=== PATIENT | male | born 1940 | race Caucasian/White ===

== ENCOUNTER → 2017-08-05 | Outpatient (CLI) | payer MEDICARE ==
[2017-08-05 11:16] LABS: Basophils % (A) 1 %; CH 32.1; CHCM 31.8; Eosinophils # (A) 0.1 k/uL (0-0.7); Eosinophils % (A) 1 %; HGB 13.9 gm/dL (13.0-17.5); Luc % (Auto) 2; Lymphocytes # (A) 1.5 k/uL (1.0-4.8); Lymphocytes % (A) 24 %; MCH 32.9 pg (25.0-35.0); MCHC 32.5 g/dL (31.0-37.0); MCV 101.3 fL (80.0-100.0); Macrocytosis Slight; Mean Platelet Volume 6.7; Monocytes # (A) 0.5 k/uL (0-1.0); Monocytes % (A) 8 %; Neutrophils # (A) 4.1 k/uL (1.3-7.7); Neutrophils % (A) 65 %; RBC 4.24 m/uL (4.30-5.90); RDW 13.6 % (11.5-15.5); WBC 6.3 k/uL (3.8-10.6); WBC (Perox) 6.77
[2017-08-05 11:27] LABS: ALT 41 U/L (21-72); AST 24 U/L (17-59); Alkaline Phosphatase 54 U/L (38-126); Anion Gap 7 mmol/L; Blood Urea Nitrogen 18 mg/dL (9-20); Calcium 9.5 mg/dL (8.4-10.2); Carbon Dioxide 28 mmol/L (22-30); Chloride 107 mmol/L (98-107); Cholesterol 142 mg/dL (<200); Glucose 107 mg/dL (74-99); HDL Cholesterol 67 mg/dL (40-60); Non-African American GFR(MDRD) >60 (>60 ml/min/1.73 sqM); Potassium 4.4 mmol/L (3.5-5.1); Sodium 142 mmol/L (137-145); Total Bilirubin 0.6 mg/dL (0.2-1.3); Total Protein 6.2 g/dL (6.3-8.2)
== END | disposition home or self-care (01) ==
LOC: LABWHC1 10:10
PROVIDERS: ATTEND Internal Medicine
DX: Z00.00 Encounter for general adult medical examination without abnormal findings (principal); E78.5 Hyperlipidemia, unspecified; I10 Essential (primary) hypertension; Z12.5 Encounter for screening for malignant neoplasm of prostate
CPT/HCPCS: 84439; 80061; 80053; 84443; 85025; 36415; G0103

== ENCOUNTER → 2018-02-26 | Outpatient (CLI) | payer MEDICARE ==
[2018-02-26 12:45] LABS: ALT 36 U/L (21-72); AST 25 U/L (17-59); Albumin 4.2 g/dL (3.5-5.0); Alkaline Phosphatase 57 U/L (38-126); Anion Gap 10 mmol/L; Calcium 9.9 mg/dL (8.4-10.2); Carbon Dioxide 30 mmol/L (22-30); Chloride 103 mmol/L (98-107); Glucose 90 mg/dL (74-99); Magnesium 2.4 mg/dL (1.6-2.3); Potassium 4.5 mmol/L (3.5-5.1); Sodium 143 mmol/L (137-145); Total Bilirubin 0.7 mg/dL (0.2-1.3); Total Protein 6.4 g/dL (6.3-8.2)
[2018-02-26 14:00] LABS: Blood Urea Nitrogen 25 mg/dL (9-20)
[2018-02-26 18:43] LABS: PSA Annual Screen 2.26 ng/mL (0.00-4.00)
[2018-02-26 19:35] LABS: Vitamin D 25 Hydroxy 43.6 ng/mL (30.0-100.0)
== END | disposition home or self-care (01) ==
LOC: LABWHC1 11:40
PROVIDERS: ATTEND Internal Medicine
DX: G14 Postpolio syndrome (principal); R53.1 Weakness; R53.83 Other fatigue; R97.20 Elevated prostate specific antigen [PSA]
CPT/HCPCS: 84439; 80053; 85652; 82607; 83735; 84443; 82306; 84403; 36415; G0103

== ENCOUNTER 2018-06-21 08:21 | Inpatient (IN) | payer MEDICARE ==
--- NOTE | 2018-06-21 08:57 | ED ---
General Adult HPI - General Chief complaint: Neuro Symptoms/Deficit Stated complaint: Altered mental status Time Seen by Provider: 06/21/18 08:28 Source: patient, family, RN notes reviewed Mode of arrival: wheelchair Limitations: altered mental status - History of Present Illness Initial comments: Patient is a pleasant 77-year-old male presenting to the emergency department with change in mental status. Patient has been having some symptoms this past week however worse today. Patient is having some hallucinations and confusion. This morning the patient did not know who he was. Patient also did not know who his was this morning and still is not certain that she is his . No history of similar symptoms previously. Patient does have known Parkinson' s. 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 No pain. No fevers. No headache. No new weakness. Patient does admit to feeling confused. Patient states he feels cloudy. - Related Data Home Medications Medication Instructions Recorded Confirmed Aspirin 325 mg PO DAILY 03/01/16 03/01/16 Bimatoprost [Lumigan .01% Ophth 1 drop BOTH EYES HS 03/01/16 03/01/16 Soln] Ezetimibe [Zetia] 10 mg PO DAILY 03/01/16 03/01/16 Fluticasone Nas[place] [Flonase 2 spr EA NOSTRIL DAILY 03/01/16 03/01/16 Nasal [place]] Metoprolol Tartrate [Lopressor] 50 mg PO DAILY 03/01/16 03/01/16 Montelukast [Singulair] 10 mg PO DAILY 03/01/16 03/01/16 Allergies Allergy/AdvReac Type Severity Reaction Status Date / Time No Known Allergies Allergy Verified 06/21/18 08:27 Review of Systems ROS Statement: Those systems with pertinent positive or pertinent negative responses have been documented in the HPI. ROS Other: All systems not noted in ROS Statement are negative. Constitutional: Denies: fever Eyes: Denies: eye pain ENT: Denies: ear pain Respiratory: Denies: cough Cardiovascular: Denies: chest pain Endocrine: Denies: fatigue Gastrointestinal: Denies: abdominal pain Genitourinary: Denies: dysuria Musculoskeletal: Denies: back pain Skin: Denies: rash Neurological: Reports: confusion. Denies: headache, weakness Past Medical History Past Medical History: CVA/TIA, Hyperlipidemia, Hypertension Additional Past Medical History / Comment(s): polio as a child, Parkinsons History of Any Multi-Drug Resistant Organisms: None Reported Past Surgical History: Orthopedic Surgery Additional Past Surgical History / Comment(s): as an pt states he had surgery to his right arm. Past Psychological History: No Psychological Hx Reported Smoking Status: Former smoker Past Alcohol Use History: Heavy Past Drug Use History: None Reported General Exam Limitations: no limitations General appearance: alert, in no apparent distress Head exam: Present: atraumatic, normocephalic Eye exam: Present: normal appearance, PERRL, EOMI. Absent: nystagmus ENT exam: Present: normal oropharynx Neck exam: Present: normal inspection. Absent: tenderness, meningismus Respiratory exam: Present: normal lung sounds bilaterally Cardiovascular Exam: Present: regular rate, normal rhythm GI/Abdominal exam: Present: soft. Absent: tenderness Extremities exam: Present: other (Right arm atrophy) Neurological exam: Present: alert, oriented X3 Expanded Neurological exam: Present: protecting the airway, other (Patient is unable to identify his ) Patient oriented to: Present: person, place, time Speech: Present: fluid speech Cranial nerves: EOM's Intact: Normal, Facial Sensation: Normal Sensory exam: Upper Extremity Light Touch: Normal, Lower Extremity Light Touch: Normal Motor strength exam: RUE: 3, LUE: 5, RLE: 5, LLE: 5 Eye Response: (4) open spontaneously Motor Response: (6) obeys commands Verbal Response: (5) oriented Psychiatric exam: Present: normal affect, normal mood Skin exam: Present: normal color Course Vital Signs 06/21/18 06/21/18 08:24 09:47 Temperature 97 F L Pulse Rate 62 65 Respiratory 18 18 Rate Blood Pressure 168/97 169/79 O2 Sat by Pulse 98 100 Oximetry EKG Findings - EKG Comments: EKG Findings:: Normal sinus rhythm 64. MT 144. QRS 92. QT 408. QTC 420. Normal axis. Normal QRS. No acute ST change. Medical Decision Making - Medical Decision Making Patient reevaluated and resting comfortably in bed. Patient unchanged. Patient and family are updated on results and plan. Case was discussed with Dr. Oquendo, covering for Dr. Bustillo who requests patient have medical admission for Dr. agee. Case was discussed with Dr. marino, who will admit. - Lab Data Result diagrams: 06/21/18 08:50 06/21/18 08:50 Lab Results 06/21/18 06/21/18 06/21/18 Range/Units 08:50 08:50 08:50 WBC 8.4 (3.8-10.6) k/uL RBC 4.30 (4.30-5.90) m/uL Hgb 13.7 (13.0-17.5) gm/dL Hct 41.8 (39.0-53.0) % MCV 97.1 (80.0-100.0) fL MCH 31.8 (25.0-35.0) pg MCHC 32.8 (31.0-37.0) g/dL RDW 13.6 (11.5-15.5) % Plt Count 227 (150-450) k/uL Neutrophils % 69 % Lymphocytes % 20 % Monocytes % 8 % Eosinophils % 2 % Basophils % 0 % Neutrophils # 5.8 (1.3-7.7) k/uL Lymphocytes # 1.7 (1.0-4.8) k/uL Monocytes # 0.7 (0-1.0) k/uL Eosinophils # 0.2 (0-0.7) k/uL Basophils # 0.0 (0-0.2) k/uL PT (9.0-12.0) sec INR (<1.2) APTT (22.0-30.0) sec Sodium 141 (137-145) mmol/L Potassium 3.9 (3.5-5.1) mmol/L Chloride 107 (98-107) mmol/L Carbon Dioxide 26 (22-30) mmol/L Anion Gap 8 mmol/L BUN 19 (9-20) mg/dL Creatinine 0.77 (0.66-1.25) mg/dL Est GFR (CKD-EPI)AfAm >90 (>60 ml/min/1.73 sqM) Est GFR (CKD-EPI)NonAf 87 (>60 ml/min/1.73 sqM) Glucose 106 H (74-99) mg/dL POC Glucose (mg/dL) (75-99) mg/dL POC Glu Supervisor [employer] ID Calcium 9.2 (8.4-10.2) mg/dL Total Bilirubin 0.7 (0.2-1.3) mg/dL AST 25 (17-59) U/L ALT 25 (21-72) U/L Alkaline Phosphatase 50 (38-126) U/L Total Creatine Kinase 90 (55-170) U/L CK-MB (CK-2) 1.4 (0.0-2.4) ng/mL CK-MB (CK-2) Rel Index 1.6 Troponin I <0.012 (0.000-0.034) ng/mL Total Protein 6.1 L (6.3-8.2) g/dL Albumin 3.7 (3.5-5.0) g/dL Urine Color Urine Appearance (Clear) Urine pH (5.0-8.0) Ur Specific [place] (1.001-1.035) Urine Protein (Negative) Urine Glucose (UA) (Negative) Urine Ketones (Negative) Urine Blood (Negative) Urine Nitrite (Negative) Urine Bilirubin (Negative) Urine Urobilinogen (<2.0) mg/dL Ur Leukocyte Esterase (Negative) 06/21/18 06/21/18 06/21/18 Range/Units 08:50 08:56 09:25 WBC (3.8-10.6) k/uL RBC (4.30-5.90) m/uL Hgb (13.0-17.5) gm/dL Hct (39.0-53.0) % MCV (80.0-100.0) fL MCH (25.0-35.0) pg MCHC (31.0-37.0) g/dL RDW (11.5-15.5) % Plt Count (150-450) k/uL Neutrophils % % Lymphocytes % % Monocytes % % Eosinophils % % Basophils % % Neutrophils # (1.3-7.7) k/uL Lymphocytes # (1.0-4.8) k/uL Monocytes # (0-1.0) k/uL Eosinophils # (0-0.7) k/uL Basophils # (0-0.2) k/uL PT 10.3 (9.0-12.0) sec INR 1.1 (<1.2) APTT 22.9 (22.0-30.0) sec Sodium (137-145) mmol/L Potassium (3.5-5.1) mmol/L Chloride (98-107) mmol/L Carbon Dioxide (22-30) mmol/L Anion Gap mmol/L BUN (9-20) mg/dL Creatinine (0.66-1.25) mg/dL Est GFR (CKD-EPI)AfAm (>60 ml/min/1.73 sqM) Est GFR (CKD-EPI)NonAf (>60 ml/min/1.73 sqM) Glucose (74-99) mg/dL POC Glucose (mg/dL) 111 H (75-99) mg/dL POC Glu [employer]visor [employer] ID Mary Barrett Calcium (8.4-10.2) mg/dL Total Bilirubin (0.2-1.3) mg/dL AST (17-59) U/L ALT (21-72) U/L Alkaline Phosphatase (38-126) U/L Total Creatine Kinase (55-170) U/L CK-MB (CK-2) (0.0-2.4) ng/mL CK-MB (CK-2) Rel Index Troponin I (0.000-0.034) ng/mL Total Protein (6.3-8.2) g/dL Albumin (3.5-5.0) g/dL Urine Color Yellow Urine Appearance Clear (Clear) Urine pH 6.0 (5.0-8.0) Ur Specific [place] 1.013 (1.001-1.035) Urine Protein Negative (Negative) Urine Glucose (UA) Negative (Negative) Urine Ketones Negative (Negative) Urine Blood Negative (Negative) Urine Nitrite Negative (Negative) Urine Bilirubin Negative (Negative) Urine Urobilinogen <2.0 (<2.0) mg/dL Ur Leukocyte Esterase Negative (Negative) - Radiology Data Radiology results: report reviewed (Computed tomography scan of the brain reveals no acute intercranial abnormality. There is some degenerative changes.) , image reviewed (Chest x-ray shows no acute process) Disposition Clinical Impression: Altered mental status Disposition: ADMITTED IP TO THIS HOSP Is patient prescribed a controlled substance at d/c from ED?: No Referrals: Elroy Bustillo MD [Primary Care Provider] - 1-2 days Decision Time: 10:07
[2018-06-21 09:00] LABS: Glucose,Whole Blood 111 mg/dL (75-99)
[2018-06-21 09:01] LABS: Basophils % (A) 0 %; Eosinophils # (A) 0.2 k/uL (0-0.7); Eosinophils % (A) 2 %; HCT 41.8 % (39.0-53.0); HGB 13.7 gm/dL (13.0-17.5); Lymphocytes # (A) 1.7 k/uL (1.0-4.8); Lymphocytes % (A) 20 %; MCH 31.8 pg (25.0-35.0); MCHC 32.8 g/dL (31.0-37.0); MCV 97.1 fL (80.0-100.0); Mean Platelet Volume 6.6; Monocytes # (A) 0.7 k/uL (0-1.0); Monocytes % (A) 8 %; Neutrophils # (A) 5.8 k/uL (1.3-7.7); Neutrophils % (A) 69 %; Platelet Count 227 k/uL (150-450); RDW 13.6 % (11.5-15.5); WBC 8.4 k/uL (3.8-10.6)
[2018-06-21 09:11] LABS: ALT 25 U/L (21-72); AST 25 U/L (17-59); Albumin 3.7 g/dL (3.5-5.0); Alkaline Phosphatase 50 U/L (38-126); Anion Gap 8 mmol/L; Blood Urea Nitrogen 19 mg/dL (9-20); Calcium 9.2 mg/dL (8.4-10.2); Carbon Dioxide 26 mmol/L (22-30); Chloride 107 mmol/L (98-107); Glucose 106 mg/dL (74-99); Potassium 3.9 mmol/L (3.5-5.1); Sodium 141 mmol/L (137-145); Total Bilirubin 0.7 mg/dL (0.2-1.3); Total Protein 6.1 g/dL (6.3-8.2)
[2018-06-21 09:19] LABS: INR 1.1 (<1.2); Partial Thromboplastin Time 22.9 sec (22.0-30.0); Prothrombin Time 10.3 sec (9.0-12.0)
[2018-06-21 09:21] LABS: Creatine Kinase 90 U/L (55-170)
--- NOTE | 2018-06-21 09:21 | CT ---
EXAMINATION TYPE: CT brain wo con DATE OF EXAM: 06/21/2018 COMPARISON: Previous study dated 12/29/2015. HISTORY: confusion CT DLP: 1057.4 mGycm Automated exposure control for dose reduction was used. FINDINGS: There are generalized changes of sulcal prominence and ventriculomegaly, compatible with atrophic greg nge. There is diffuse periventricular white matter lucency, compatible small vessel ischemic change. There is no acute focal lesion, mass effect or midline shift identified. I do not see evidence of int racranial blood. Visualized portions of the paranasal sinuses and mastoids are clear. IMPRESSION: 1. NO ACUTE INTRACRANIAL ABNORMALITY. 2. DEGENERATIVE CHANGE.
--- NOTE | 2018-06-21 09:31 | XR ---
EXAMINATION TYPE: XR chest 2V DATE OF EXAM: 06/21/2018 HISTORY: altered mental status. REFERENCE: Previous study dated 03/01/2016. FINDINGS: There is chronic apparent elevation of the right hemidiaphragm. The heart is mildly enlarged. The lungs are clear. Pleural spaces are clear. IMPRESSION: NO ACUTE INTRATHORACIC ABNORMALITY.
[2018-06-21 09:34] LABS: Creatine Kinase MB 1.4 ng/mL (0.0-2.4); Troponin I <0.012 ng/mL (0.000-0.034)
[2018-06-21 09:42] LABS: Appearance,Urine Clear (Clear); Bilirubin,Urine Negative (Negative); Blood,Urine Negative (Negative); Color,Urine Yellow; Glucose,Urine (UA) Negative (Negative); Ketones,Urine Negative (Negative); Leukocyte Esterase,Urine Negative (Negative); Nitrite,Urine Negative (Negative); Protein,Urine Negative (Negative); Specific Gravity,Urine 1.013 (1.001-1.035); Urobilinogen,Urine <2.0 mg/dL (<2.0)
[2018-06-21] MEDS ORDERED: NALOXONE 0.4 MG/ML 1 ML VIAL IV PRN (10:08)
[2018-06-21] MEDS ORDERED: SODIUM CHLORIDE 0.9% 1,000 ML IV SCH (10:15)
--- NOTE | 2018-06-21 10:57 | US ---
EXAMINATION TYPE: US carotid duplex BILAT DATE OF EXAM: 06/21/2018 COMPARISON: Previous study dated 01/04/2016. CLINICAL HISTORY: ams. AMS EXAM MEASUREMENTS: RIGHT: Peak Systolic Velocity (PSV) cm/sec ----- Right CCA: 80.1 ----- Right ICA: 58.9 ----- Right ECA: 102.1 ICA/CCA ratio: 0.7 RIGHT: End Diastole cm/sec ----- Right CCA: 14.2 ----- Right ICA: 12.7 ----- Right ECA: 8.9 LEFT: Peak Systolic Velocity (PSV) cm/sec ----- Left CCA: 85.6 ----- Left ICA: 80.1 ----- Left ECA: 75.7 ICA/CCA ratio: 0.9 LEFT: End Diastole cm/sec ----- Left CCA: 13.1 ----- Left ICA: 25.2 ----- Left ECA: 6.5 VERTEBRALS (direction of flow): Right Vertebral: Antegrade Left Vertebral: Antegrade Rhythm: Normal No significant stenosis seen IMPRESSION: I DO NOT SEE EVIDENCE OF A HEMODYNAMICALLY SIGNIFICANT STENOSIS IN EITHER CAROTID SYSTEM. Criteria for Assigning % of Stenosis / Diameter reduction (Estimation based on the indirect measurements of the internal carotid artery velocities (ICA PSV). 1. Normal (no stenosis)=ICA PSV < 125 cm/s: ratio < 2.0: ICA EDV<40 cm/s. 2. Less than 50% stenosis=ICA PSV < 125 cm/s: ratio < 2.0: ICA EDV<40 cm/s. 3. 50 to 69% stenosis=ICA PSV of 125 to 230 cm/s: ration 2.0 ? 4.0: ICA EDV 40-100 cm/s. 4. Greater than 70% stenosis to near occlusion= ICA PSV > 230 cm/s: ratio > 4.0: ICA EDV > 100 cm/s. 5. Near occlusion= ICA PSV velocities may be low or undetectable: variable ratio and ICA EDV. 6. Total occlusion=unable to detect flow.
[2018-06-21 11:20] VITALS: BMI 23.8
[2018-06-21] MEDS ORDERED: ENOXAPARIN 40 MG/0.4 ML SYRINGE SQ SCH (12:45)
[2018-06-21] MEDS ORDERED: CLOPIDOGREL 75 MG TAB PO SCH (12:45)
[2018-06-21] MEDS ORDERED: METOPROLOL SUCCINATE (ER) 50 MG TAB.ER.24H PO SCH (12:45)
[2018-06-21] MEDS ORDERED: EZETIMIBE 10 MG TAB PO SCH (12:45)
[2018-06-21] MEDS ORDERED: amLODIPine 5 MG TAB PO SCH (12:45)
[2018-06-21] MEDS ORDERED: LOSARTAN 50 MG TAB PO SCH (12:45)
[2018-06-21] MEDS: CARBIDOPA-LEVODOPA 25-100 MG 1 EACH TAB PO SCH ×3 (13:00→17:09)
[2018-06-21 15:20] VITALS: BP 147/70; PULSE 56; RESP 17; TEMP 97.8
--- NOTE | 2018-06-21 17:59 | HP ---
HISTORY AND PHYSICAL DATE OF SERVICE: 06/21/2018. PRESENTING COMPLAINT: Acute forgetfulness. 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 Bustillo. Chronic stable medical conditions include hypertension, hyperlipidemia, and polio affecting the right arm. The patient, on May 08, was diagnosed with Parkinson disease, started on Sinemet 25/100, at [facility], 3 times a day. Most of the history is derived from the , who is very active in his care. The patient, over a period of time, has had speech becoming slow and handwriting was becoming more spidery. The patient was having a shuffling gait and not much movement of his arms. His expression was becoming more flat. The patient had formerly seen Dr. Armstrong locally in [facility], the neurologist. The patient took the Sinemet for about a month, about 4 days ago the patient noticed 4 small people inside his house and he was hallucinating and he went down to his neighbors. This morning he was not able to recognize his . The , in the last 3 days, had cut back on the dose of Sinemet. He was taking it 2 tablets 3 times a day, now down to 1 tablet 3 times a day, with fear of the tablets causing hallucinations. The patient did not have any new weakness. Later the patient was able to recognize his . The patient did have a TIA in the past, for which he was taking Plavix. When I interviewed the patient he had come back to his baseline. The patient has an appointment, after waiting a long time, at [facility] tomorrow morning at 9 o'clock. REVIEW OF SYSTEMS: CONSTITUTIONAL: None. HEENT: None. RESPIRATORY: None. CARDIOVASCULAR: None. GASTROINTESTINAL: None. GENITOURINARY: None. MUSCULOSKELETAL: None. DERMATOLOGIC: None. HEMATOLOGIC: None. LYMPHATICS: None. PSYCHIATRY: As above. NEUROLOGIC: As above. PAST MEDICAL HISTORY: TIA, hypertension, hyperlipidemia, polio, Parkinson disease. PAST SURGICAL HISTORY: The patient had surgery to the right upper extremity. SOCIAL HISTORY: The patient smoked in the younger years. Drinks alcohol occasionally. . 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 FAMILY HISTORY: Pancreatic cancer. HOME MEDICATIONS: 1. Norvasc 5 mg p.o. daily. 2. Singulair 10 mg p.o. at bedtime. 3. Toprol-XL 50 mg p.o. daily. 4. Losartan 50 mg b.i.d. 5. Zetia 10 mg p.o. daily. 6. Plavix 75 mg p.o. daily. 7. Sinemet 25/100 one tablet p.o. t.i.d. 8. Lumigan 0.01% 1 drop to both eyes at bedtime. ALLERGIES: None. PHYSICAL EXAMINATION: Temperature 97.8, pulse 56, respiration 17, blood pressure 147/70, pulse ox 97 percent on room air. GENERAL: Average built, sitting up, comfortable. EYES: Pupil equal. Conjunctivae normal. HEENT: External nose and ears normal. Oral cavity normal. NECK: JVD not raised. Mass not palpable. RESPIRATORY: Effort normal. Lungs fair entry. CARDIOVASCULAR: 1st and 2nd sounds. No edema. ABDOMEN: Soft, nontender. Liver and spleen not palpable. LYMPHATICS: No lymph nodes palpable in the neck or axillae. PSYCHIATRY: Alert and oriented x3. Mood and affect normal. NEUROLOGIC: Speech is a bit monotone. The patient has bradykinesia. No obvious tremor. Minimal rigidity. The patient has got a contracted right upper extremity with all muscles contracted. Also . The patient may subtle weakness on the left side of the face compared to right. is not sure if this is new or old. ASSESSMENT: 1. Acute episode of increasing forgetfulness in a patient who has been having also hallucinations. The patient may be having dementia associated with Parkinson disease flaring up. At the same time, hallucinations can be a side effect of the Sinemet diagnosed in 2% to 3%. 2. 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 3. Essential hypertension. 4. Hyperlipidemia. 5. Chronic polio affecting the right arm. PLAN: Home medications are resumed. The patient will be kept on current dose of Sinemet. The patient is continued on Plavix. Discussed with the about keeping the patient's current dose of Sinemet. We will discuss with Dr. Armstrong, to see if patient can be discharged later tonight to follow up at [facility] in the morning. Did talk to the , that ideally we would keep the patient at least for 24 hours, but keeping the appointment tomorrow is important. The and the patient understand the same. MMODL / IJN: [id number] /
[2018-06-21] MEDS ORDERED: MONTELUKAST 10 MG TAB PO SCH (21:00)
[2018-06-21] MEDS ORDERED: LATANOPROST 0.005% OPHTH DROPS 2.5 ML BTL BOTH EYES SCH (21:00)
--- NOTE | 2018-06-21 22:26 | DS ---
DISCHARGE SUMMARY DATE OF ADMISSION: 06/21/2018 DATE OF DISCHARGE: June 21, 2018. FINAL DIAGNOSES: 1. Acute episode of increased forgetful in the patient possibly secondary to dementia from underlying Parkinson disease associated with possibly Lewy body dementia or could be a side effect. 2. Hallucinations could be a side effect of Sinemet presented in 2-3 percent of cases. 3. Parkinson disease associated with the Lewy body dementia possibly. 4. Essential hypertension. 5. Hyperlipidemia. 6. Chronic polio affecting the right arm. HOSPITAL COURSE: Please see my H and P for more details. Recently diagnosed with Parkinson disease at the [facility]. Started on Sinemet. The patient has been having some hallucinations. Today became forgetful. Did not recognize his . The patient is already on Plavix for previous TIA. I had a long talk with the patient and his and they have an important appointment tomorrow at [facility]. Pros and cons were discussed with the patient and . Also spoke to Dr. Armstrong. It was felt best for him to go home tonight and follow up at [facility] and if something untoward were to happen, he is to come back to the hospital. On examination, patient able to carry out a conversation and the patient has got bradykinesia, slow speech. Did talk to the about maintaining his current dose of Sinemet. CONSULTATION: Dr. Armstrong from Neurology. DISCHARGE MEDICATIONS: 1. Lumigan 0.01% 1 drop to both eyes q.h.s. 2. Zetia 10 mg p.o. daily. 3. Singulair 10 mg at bedtime. 4. Sinemet 25/100 one tablet p.o. t.i.d. 5. Plavix 75 mg p.o. daily. 6. Losartan 50 mg b.i.d. 7. Toprol-XL 50 mg p.o. daily. 8. Norvasc 5 mg p.o. q.h.s. FOLLOW UP: Follow up at [facility] neurologist tomorrow morning at [address] Elroy Bustillo in one week. Copy to Dr. Bustillo. MMODL / [place]: [id number] /
== END 2018-06-21 17:48 | disposition home or self-care (01) | DRG 57 ==
LOC: EC 08:21 → 6SEL 10:08
PROVIDERS: ADMIT Hospitalist; ATTEND Hospitalist
DX: G31.83 Neurocognitive disorder with Lewy bodies (principal); R44.2 Other hallucinations; B91 Sequelae of poliomyelitis; F02.80 Dementia in other diseases classified elsewhere, unspecified severity, without behavioral disturbance, psychotic disturbance, mood disturbance, and anxiety; R53.1 Weakness; T42.8X5A Adverse effect of antiparkinsonism drugs and other central muscle-tone depressants, initial encounter; I10 Essential (primary) hypertension; E78.5 Hyperlipidemia, unspecified; Z79.02 Long term (current) use of antithrombotics/antiplatelets; Z79.899 Other long term (current) drug therapy; Z79.82 Long term (current) use of aspirin; Z86.73 Personal history of transient ischemic attack (TIA), and cerebral infarction without residual deficits; Z87.891 Personal history of nicotine dependence; Z80.0 Family history of malignant neoplasm of digestive organs
CPT/HCPCS: 36415; 70450; 71046; 80053; 81003; 82550; 82553; 84484; 85025; 85610; 85730; 93880; 99285

== ENCOUNTER → 2019-07-12 | Outpatient (CLI) | payer MEDICARE ==
[2019-07-12 09:46] LABS: Basophils % (A) 1 %; Eosinophils # (A) 0.4 k/uL (0-0.7); Eosinophils % (A) 5 %; HCT 39.5 % (39.0-53.0); HGB 12.8 gm/dL (13.0-17.5); Lymphocytes # (A) 1.9 k/uL (1.0-4.8); Lymphocytes % (A) 27 %; MCH 31.4 pg (25.0-35.0); MCHC 32.3 g/dL (31.0-37.0); MCV 97.1 fL (80.0-100.0); Mean Platelet Volume 6.4; Monocytes # (A) 0.5 k/uL (0-1.0); Monocytes % (A) 8 %; Neutrophils % (A) 57 %; Platelet Count 224 k/uL (150-450); RBC 4.07 m/uL (4.30-5.90); RDW 13.6 % (11.5-15.5)
[2019-07-12 16:17] LABS: ALT 23 U/L (10-49); AST 24 U/L (14-35); African American GFR (CKD) 93.8 (60.0-200.0); Albumin/Globulin Ratio 2.22 (1.60-3.17); Alkaline Phosphatase 76 U/L (41-126); BUN/Creat Ratio 25.56 Ratio (12.00-20.00); Calcium 9.3 mg/dL (8.7-10.3); Carbon Dioxide 28.4 mmol/L (21.6-31.8); Chloride 108 mmol/L (96-109); Chol/HDL Ratio 2.15; Cholesterol 146 mg/dL (0-200); Globulin 1.8 g/dL (1.6-3.3); Glucose 101 mg/dL (70-110); Potassium 4.1 mmol/L (3.5-5.5); Sodium 145 mmol/L (135-145); Total Bilirubin 0.4 mg/dL (0.2-1.2); Total Protein 5.8 g/dL (6.2-8.2); Triglycerides <50.0 mg/dL (0.0-149.0); VLDL Calculation 9.98 mg/dL (5.00-40.00)
== END | disposition home or self-care (01) ==
LOC: LABWHC1 08:46
PROVIDERS: ATTEND Internal Medicine
DX: Z00.00 Encounter for general adult medical examination without abnormal findings (principal); Z12.5 Encounter for screening for malignant neoplasm of prostate; E78.00 Pure hypercholesterolemia, unspecified; I10 Essential (primary) hypertension; R49.8 Other voice and resonance disorders; G20 Parkinson's disease
CPT/HCPCS: 84439; 80061; 80053; 82607; 84443; 85025; 36415; G0103

== ENCOUNTER 2020-10-14 11:34 | Emergency (ER) | payer MEDICARE ==
[2020-10-14] MEDS ORDERED: DIPH,PERTUS(ACELL)TETVAC-LF 0.5 ML VIAL IM ONE (12:00)
[2020-10-14 12:05] LABS: Glucose,Whole Blood 87 mg/dL (75-99)
--- NOTE | 2020-10-14 12:09 | ED ---
Fall HPI - General Chief Complaint: Fall Stated Complaint: Fall Time Seen by Provider: 10/14/20 11:51 Source: patient, family, RN notes reviewed, old records reviewed Mode of arrival: wheelchair - History of Present Illness Initial Comments: This is an 80-year-old male with a history of CVA hypertension post polio syndrome who apparently fell out of bed this morning. Is a question whether he was rendered unconscious for a short period time or not. His found him he was awake and alert he had a contusion abrasion to the top of the scalp also to his left forearm and some bruising to the right forearm. He was seen at [facility] and sent here for further evaluation. Is unknown exactly when his last tetanus shot was. No other complaints no other modifying factors at this time he is on Plavix. MD Complaint: fall - Related Data Home Medications Medication Instructions Recorded Confirmed Bimatoprost [Lumigan .01% Ophth 1 drop BOTH EYES HS 03/01/16 10/14/20 Soln] Ezetimibe [Zetia] 10 mg PO DAILY 03/01/16 10/14/20 Montelukast [Singulair] 10 mg PO HS 03/01/16 10/14/20 Carbidopa-Levodopa 25-100 mg 1 tab PO BID 06/21/18 10/14/20 [Sinemet 25-100 mg] Clopidogrel [Plavix] 75 mg PO DAILY 06/21/18 10/14/20 Losartan Potassium 50 mg PO BID 06/21/18 10/14/20 Metoprolol Succinate (ER) [Toprol 50 mg PO DAILY 06/21/18 10/14/20 XL] Donepezil HCl [Aricept] 10 mg PO DAILY 10/14/20 10/14/20 Ibuprofen [Motrin Ib] 200 mg PO Q8H PRN 10/14/20 10/14/20 QUEtiapine [SEROquel] 75 mg PO HS 10/14/20 10/14/20 amLODIPine [Norvasc] 5 mg PO DAILY 10/14/20 10/14/20 Allergies Allergy/AdvReac Type Severity Reaction Status Date / Time carbidopa AdvReac Hallucinations Verified 10/14/20 12:15 ON HIGH DOSES, LOW DOSE OK levodopa AdvReac Hallucinations Verified 10/14/20 12:15 ON HIGH DOSES, LOW DOSE OK Review of Systems ROS Statement: Those systems with pertinent positive or pertinent negative responses have been documented in the HPI. ROS Other: All systems not noted in ROS Statement are negative. Past Medical History Past Medical History: CVA/TIA, Dementia, Hyperlipidemia, Hypertension Additional Past Medical History / Comment(s): polio as a child, Parkinsons History of Any Multi-Drug Resistant Organisms: None Reported Past Surgical History: Orthopedic Surgery Additional Past Surgical History / Comment(s): as an pt states he had surgery to his right arm. Past Psychological History: No Psychological Hx Reported Smoking Status: Never smoker Past Alcohol Use History: None Reported Past Drug Use History: None Reported - Past Family History Father Family Medical History: Cancer Additional Family Medical History / Comment(s): Pancreatic Mother Family Medical History: Cancer General Exam - General Exam Comments Initial Comments: This a well-developed asthenic appearing male was awake alert demonstrate a [place] Coma Scale of 15 Limitations: no limitations General appearance: alert, in no apparent distress Head exam: Present: other (Abrasion and contusion noted to the occipital parietal scalp no step-off or crepitation.) Eye exam: Present: normal appearance, PERRL, EOMI. Absent: scleral icterus, conjunctival injection, periorbital swelling ENT exam: Present: normal exam, mucous membranes moist Neck exam: Present: normal inspection, other (Cervical collar placed in triage no definite tenderness palpation of the cervical spinous processes). Absent: t enderness, meningismus, lymphadenopathy Respiratory exam: Present: normal lung sounds bilaterally. Absent: respiratory distress, wheezes, rales, rhonchi, stridor Cardiovascular Exam: Present: regular rate, normal rhythm, normal heart sounds. Absent: systolic murmur, diastolic murmur, rubs, gallop, clicks GI/Abdominal exam: Present: soft, normal bowel sounds. Absent: distended, tenderness, guarding, rebound, rigid Extremities exam: Present: normal capillary refill, other (Examination extremiti es left upper extremity there is approximately 3 x 3 cm avulsion injury noted to the proximal lateral forearm no active bleeding seen dressing was applied. The right upper extremity demonstrates atrophy consistent with polio some bruising noted over the mid to proximal humerus ). Absent: tenderness, pedal edema, joint swelling, calf tenderness Back exam: Present: normal inspection Neurological exam: Present: alert, oriented X3, CN II-XII intact Psychiatric exam: Present: normal affect, normal mood Skin exam: Present: warm, dry, normal color. Absent: rash Course Vital Signs 10/14/20 11:36 Temperature 98.4 F Pulse Rate 72 Respiratory 18 Rate Blood Pressure 137/78 O2 Sat by Pulse 99 Oximetry Medical Decision Making - Medical Decision Making I did discuss findings with the patient and his . No further workup is indicated patient is eager to go home he will be discharged - Lab Data Result diagrams: 10/14/20 12:00 10/14/20 12:00 Lab Results 10/14/20 10/14/20 10/14/20 Range/Units 12:00 12:00 12:00 WBC 9.2 (3.8-10.6) k/uL RBC 4.37 (4.30-5.90) m/uL Hgb 14.2 (13.0-17.5) gm/dL Hct 42.3 (39.0-53.0) % MCV 96.8 (80.0-100.0) fL MCH 32.5 (25.0-35.0) pg MCHC 33.6 (31.0-37.0) g/dL RDW 13.5 (11.5-15.5) % Plt Count 221 (150-450) k/uL MPV 6.9 Neutrophils % 70 % Lymphocytes % 21 % Monocytes % 6 % Eosinophils % 1 % Basophils % 1 % Neutrophils # 6.5 (1.3-7.7) k/uL Lymphocytes # 1.9 (1.0-4.8) k/uL Monocytes # 0.6 (0-1.0) k/uL Eosinophils # 0.1 (0-0.7) k/uL Basophils # 0.1 (0-0.2) k/uL PT 9.9 (9.0-12.0) sec INR 1.0 (<1.2) APTT 23.7 (22.0-30.0) sec Sodium 140 (137-145) mmol/L Potassium 4.3 (3.5-5.1) mmol/L Chloride 106 (98-107) mmol/L Carbon Dioxide 29 (22-30) mmol/L Anion Gap 5 mmol/L BUN 20 (9-20) mg/dL Creatinine 0.71 (0.66-1.25) mg/dL Est GFR (CKD-EPI)AfAm >90 (>60 ml/min/1.73 sqM) Est GFR (CKD-EPI)NonAf 88 (>60 ml/min/1.73 sqM) Glucose 95 (74-99) mg/dL POC Glucose (mg/dL) (75-99) mg/dL POC Glu [employer] ID Calcium 9.6 (8.4-10.2) mg/dL Total Bilirubin 0.8 (0.2-1.3) mg/dL AST 31 (17-59) U/L ALT 28 (4-49) U/L Alkaline Phosphatase 54 (38-126) U/L Creatine Kinase 92 (55-170) U/L Troponin I (0.000-0.034) ng/mL Total Protein 6.7 (6.3-8.2) g/dL Albumin 4.0 (3.5-5.0) g/dL Urine Color Urine Appearance (Clear) Urine pH (5.0-8.0) Ur Specific [place] (1.001-1.035) Urine Protein (Negative) Urine Glucose (UA) (Negative) Urine Ketones (Negative) Urine Blood (Negative) Urine Nitrite (Negative) Urine Bilirubin (Negative) Urine Urobilinogen (<2.0) mg/dL Ur Leukocyte Esterase (Negative) Urine Opiates Screen (NotDetected) Ur Oxycodone Screen (NotDetected) Urine Methadone Screen (NotDetected) Ur Propoxyphene Screen (NotDetected) Ur Barbiturates Screen (NotDetected) U Tricyclic Antidepress (NotDetected) Ur Phencyclidine Scrn (NotDetected) Ur Amphetamines Screen (NotDetected) U Methamphetamines Scrn (NotDetected) U Benzodiazepines Scrn (NotDetected) Urine Cocaine Screen (NotDetected) U Marijuana (THC) Screen (NotDetected) Serum Alcohol <10 mg/dL Blood Type Blood Type Recheck Bld Type Recheck Status Antibody Screen Spec Expiration Date 10/14/20 10/14/20 10/14/20 Range/Units 12:00 12:00 12:03 WBC (3.8-10.6) k/uL RBC (4.30-5.90) m/uL Hgb (13.0-17.5) gm/dL Hct (39.0-53.0) % MCV (80.0-100.0) fL MCH (25.0-35.0) pg MCHC (31.0-37.0) g/dL RDW (11.5-15.5) % Plt Count (150-450) k/uL MPV Neutrophils % % Lymphocytes % % Monocytes % % Eosinophils % % Basophils % % Neutrophils # (1.3-7.7) k/uL Lymphocytes # (1.0-4.8) k/uL Monocytes # (0-1.0) k/uL Eosinophils # (0-0.7) k/uL Basophils # (0-0.2) k/uL PT (9.0-12.0) sec INR (<1.2) APTT (22.0-30.0) sec Sodium (137-145) mmol/L Potassium (3.5-5.1) mmol/L Chloride (98-107) mmol/L Carbon Dioxide (22-30) mmol/L Anion Gap mmol/L BUN (9-20) mg/dL Creatinine (0.66-1.25) mg/dL Est GFR (CKD-EPI)AfAm (>60 ml/min/1.73 sqM) Est GFR (CKD-EPI)NonAf (>60 ml/min/1.73 sqM) Glucose (74-99) mg/dL POC Glucose (mg/dL) 87 (75-99) mg/dL POC Glu [employer] Robbie Nassar Calcium (8.4-10.2) mg/dL Total Bilirubin (0.2-1.3) mg/dL AST (17-59) U/L ALT (4-49) U/L Alkaline Phosphatase (38-126) U/L Creatine Kinase (55-170) U/L Troponin I <0.012 (0.000-0.034) ng/mL Total Protein (6.3-8.2) g/dL Albumin (3.5-5.0) g/dL Urine Color Urine Appearance (Clear) Urine pH (5.0-8.0) Ur Specific [place] (1.001-1.035) Urine Protein (Negative) Urine Glucose (UA) (Negative) Urine Ketones (Negative) Urine Blood (Negative) Urine Nitrite (Negative) Urine Bilirubin (Negative) Urine Urobilinogen (<2.0) mg/dL Ur Leukocyte Esterase (Negative) Urine Opiates Screen (NotDetected) Ur Oxycodone Screen (NotDetected) Urine Methadone Screen (NotDetected) Ur Propoxyphene Screen (NotDetected) Ur Barbiturates Screen (NotDetected) U Tricyclic Antidepress (NotDetected) Ur Phencyclidine Scrn (NotDetected) Ur Amphetamines Screen (NotDetected) U Methamphetamines Scrn (NotDetected) U Benzodiazepines Scrn (NotDetected) Urine Cocaine Screen (NotDetected) U Marijuana (THC) Screen (NotDetected) Serum Alcohol mg/dL Blood Type A Positive Blood Type Recheck No Previous Record Bld Type Recheck Status CABO Indicated Antibody Screen NEGATIVE Spec Expiration Date 10/17/2020 - 229910/14/20 Range/Units 13:30 WBC (3.8-10.6) k/uL RBC (4.30-5.90) m/uL Hgb (13.0-17.5) gm/dL Hct (39.0-53.0) % MCV (80.0-100.0) fL MCH (25.0-35.0) pg MCHC (31.0-37.0) g/dL RDW (11.5-15.5) % Plt Count (150-450) k/uL MPV Neutrophils % % Lymphocytes % % Monocytes % % Eosinophils % % Basophils % % Neutrophils # (1.3-7.7) k/uL Lymphocytes # (1.0-4.8) k/uL Monocytes # (0-1.0) k/uL Eosinophils # (0-0.7) k/uL Basophils # (0-0.2) k/uL PT (9.0-12.0) sec INR (<1.2) APTT (22.0-30.0) sec Sodium (137-145) mmol/L Potassium (3.5-5.1) mmol/L Chloride (98-107) mmol/L Carbon Dioxide (22-30) mmol/L Anion Gap mmol/L BUN (9-20) mg/dL Creatinine (0.66-1.25) mg/dL Est GFR (CKD-EPI)AfAm (>60 ml/min/1.73 sqM) Est GFR (CKD-EPI)NonAf (>60 ml/min/1.73 sqM) Glucose (74-99) mg/dL POC Glucose (mg/dL) (75-99) mg/dL POC Glu [employer] Gr[employer] Tool ID Calcium (8.4-10.2) mg/dL Total Bilirubin (0.2-1.3) mg/dL AST (17-59) U/L ALT (4-49) U/L Alkaline Phosphatase (38-126) U/L Creatine Kinase (55-170) U/L Troponin I (0.000-0.034) ng/mL Total Protein (6.3-8.2) g/dL Albumin (3.5-5.0) g/dL Urine Color Light Yellow Urine Appearance Clear (Clear) Urine pH 5.5 (5.0-8.0) Ur Specific [place] 1.010 (1.001-1.035) Urine Protein Negative (Negative) Urine Glucose (UA) Negative (Negative) Urine Ketones Negative (Negative) Urine Blood Negative (Negative) Urine Nitrite Negative (Negative) Urine Bilirubin Negative (Negative) Urine Urobilinogen <2.0 (<2.0) mg/dL Ur Leukocyte Esterase Negative (Negative) Urine Opiates Screen Not Detected (NotDetected) Ur Oxycodone Screen Not Detected (NotDetected) Urine Methadone Screen Not Detected (NotDetected) Ur Propoxyphene Screen Not Detected (NotDetected) Ur Barbiturates Screen Not Detected (NotDetected) U Tricyclic Antidepress Detected H (NotDetected) Ur Phencyclidine Scrn Not Detected (NotDetected) Ur Amphetamines Screen Not Detected (NotDetected) U Methamphetamines Scrn Not Detected (NotDetected) U Benzodiazepines Scrn Not Detected (NotDetected) Urine Cocaine Screen Not Detected (NotDetected) U Marijuana (THC) Screen Not Detected (NotDetected) Serum Alcohol mg/dL Blood Type Blood Type Recheck Bld Type Recheck Status Antibody Screen Spec Expiration Date - EKG Data -: EKG Interpreted by Me EKG Comments: Sinus bradycardia of 59. Interval 164 QRS 90 QT since QTC 422/[address]-t wave changes - Radiology Data Radiology results: report reviewed (I did review the imaging and reports no evidence of acute findings patient is demonstrating significant degenerative changes in the cervical spine but no evidence of acute fractures.), image reviewed Disposition Clinical Impression: Fall, Forearm abrasion, Scalp contusion, Facial contusion Disposition: HOME SELF-CARE Condition: Good Instructions (If sedation given, give patient instructions): Fall Prevention for Older Adults (ED), Scalp Contusion in Adults (ED), Contusion in Adults (ED) Is patient prescribed a controlled substance at d/c from ED?: No Referrals: Elroy Bustillo MD [Primary Care Provider] - 1-2 days
--- NOTE | 2020-10-14 12:24 | XR ---
EXAMINATION TYPE: XR chest 1V portable DATE OF EXAM: 10/14/2020 COMPARISON: 07/26/2020 HISTORY: Trauma. Fell from the bed. TECHNIQUE: Single view FINDINGS: Heart is normal. Lungs are clear of consolidation. There is slight elevated right diaphragm . Thoracic aorta is atheromatous. Bony thorax is intact. IMPRESSION: There is mild elevation of the right diaphragm that is new compared to old exam and could relate to partial paralysis. Normal heart.
--- NOTE | 2020-10-14 12:25 | XR ---
EXAMINATION TYPE: XR pelvis AP view DATE OF EXAM: 10/14/2020 COMPARISON: NONE HISTORY: Fell from bed. Pain. TECHNIQUE: Single view FINDINGS: Pelvic ring appears intact. Proximal femurs are intact. There is no evidence of a fracture. Sacroiliac joints are intact. IMPRESSION: Negative exam. No fracture seen.
[2020-10-14 12:28] LABS: Basophils # (A) 0.1 k/uL (0-0.2); Basophils % (A) 1 %; Eosinophils # (A) 0.1 k/uL (0-0.7); Eosinophils % (A) 1 %; HCT 42.3 % (39.0-53.0); HGB 14.2 gm/dL (13.0-17.5); Lymphocytes # (A) 1.9 k/uL (1.0-4.8); Lymphocytes % (A) 21 %; MCH 32.5 pg (25.0-35.0); MCHC 33.6 g/dL (31.0-37.0); MCV 96.8 fL (80.0-100.0); Mean Platelet Volume 6.9; Monocytes # (A) 0.6 k/uL (0-1.0); Monocytes % (A) 6 %; Neutrophils # (A) 6.5 k/uL (1.3-7.7); Neutrophils % (A) 70 %; Platelet Count 221 k/uL (150-450); RBC 4.37 m/uL (4.30-5.90); RDW 13.5 % (11.5-15.5); WBC 9.2 k/uL (3.8-10.6)
[2020-10-14 12:32] LABS: ALT 28 U/L (4-49); AST 31 U/L (17-59); African American GFR (CKD) >90 (>60 ml/min/1.73 sqM); Alcohol <10 mg/dL; Alkaline Phosphatase 54 U/L (38-126); Anion Gap 5 mmol/L; Blood Urea Nitrogen 20 mg/dL (9-20); Calcium 9.6 mg/dL (8.4-10.2); Carbon Dioxide 29 mmol/L (22-30); Chloride 106 mmol/L (98-107); Creatine Kinase 92 U/L (55-170); Glucose 95 mg/dL (74-99); Non-African American GFR(CKD) 88 (>60 ml/min/1.73 sqM); Potassium 4.3 mmol/L (3.5-5.1); Sodium 140 mmol/L (137-145); Total Bilirubin 0.8 mg/dL (0.2-1.3); Total Protein 6.7 g/dL (6.3-8.2)
[2020-10-14 12:44] LABS: Partial Thromboplastin Time 23.7 sec (22.0-30.0); Prothrombin Time 9.9 sec (9.0-12.0)
--- NOTE | 2020-10-14 12:47 | CT ---
EXAMINATION TYPE: CT brain melissaine wo con DATE OF EXAM: 10/14/2020 COMPARISON: CT brain 06/21/2018 HISTORY: Trauma CT DLP: 1467.9 mGycm Automated exposure control for dose reduction was used. There is cerebral cortical atrophy. There is no mass effect nor midline shift. There is no sign of in tracranial hemorrhage. Calvarium is intact. Cervical vertebra have fairly normal alignment. There is degenerative disc space narrowing from C3 to T1 with spurring of the endplates. There is multilevel cervical hypertrophic facet arthropathy. Ther e is no compression fracture. Skull base is intact. There is normal aeration of the mastoid sinuses. 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 No fracture. Cerebral atrophy. No acute intracranial abnormality. Brain unchanged compared to old exam.
[2020-10-14 13:39] LABS: Appearance,Urine Clear (Clear); Bilirubin,Urine Negative (Negative); Blood,Urine Negative (Negative); Color,Urine Light Yellow; Glucose,Urine (UA) Negative (Negative); Ketones,Urine Negative (Negative); Leukocyte Esterase,Urine Negative (Negative); Nitrite,Urine Negative (Negative); PH, Urine 5.5 (5.0-8.0); Protein,Urine Negative (Negative); Urobilinogen,Urine <2.0 mg/dL (<2.0)
--- NOTE | 2020-10-14 13:43 | XR ---
EXAMINATION TYPE: XR humerus LT DATE OF EXAM: 10/14/2020 COMPARISON: NONE HISTORY: Pain. Fell from bed TECHNIQUE: 2 views FINDINGS: I see no fracture nor dislocation. Shoulder joint and elbow joint appear anatomic. IMPRESSION: Negative left humerus exam.
--- NOTE | 2020-10-14 13:44 | XR ---
EXAMINATION TYPE: XR forearm LT DATE OF EXAM: 10/14/2020 COMPARISON: NONE HISTORY: Pain TECHNIQUE: 2 views FINDINGS: Spurring of the olecranon process of the ulna. IMPRESSION: I see no fracture nor dislocation. Wrist joint and elbow joint appear intact no acute abn ormality of the left forearm
--- NOTE | 2020-10-14 13:48 | XR ---
EXAMINATION TYPE: XR forearm RT DATE OF EXAM: 10/14/2020 COMPARISON: NONE HISTORY: Pain. TECHNIQUE: 2 views FINDINGS: On the lateral view there is an anterior dislocation of the radial head. The wrist joint ap pears anatomic. The humerus ulna joint is anatomic. There is mild hyperextension deformity at the rad iocarpal joint. IMPRESSION: There is anterior dislocation of the radial head. No fracture seen.
--- NOTE | 2020-10-14 13:49 | XR ---
EXAMINATION TYPE: XR humerus RT DATE OF EXAM: 10/14/2020 COMPARISON: NONE HISTORY: Fell out of bed. Pain. TECHNIQUE: 2 views FINDINGS: Shoulder joint is intact. I see no fracture. There is anterior dislocation of the radial he ad. This could be a chronic dislocation there is soft tissue atrophy. IMPRESSION: No fracture seen. Anterior dislocation of the radial head.
[2020-10-14 13:50] LABS: Amphetamine Screen,Urine Not Detected (NotDetected); Barbiturate Screen,Urine Not Detected (NotDetected); Benzodiazepines Screen,Urine Not Detected (NotDetected); Cocaine Screen,Urine Not Detected (NotDetected); Methadone Screen, Urine Not Detected (NotDetected); Opiate Screen,Urine Not Detected (NotDetected); Oxycodone Screen, Urine Not Detected (NotDetected); Phencyclidine Screen,Urine Not Detected (NotDetected); Tricyclic Antidepressant,Urine Detected (NotDetected); Urn Cannabinoid Scrn Not Detected (NotDetected)
[2020-10-14 14:32] VITALS: BP 182/95; PULSE 71; RESP 16; TEMP 98
== END 2020-10-14 14:27 | disposition home or self-care (01) ==
LOC: EC 11:34
DX: S00.03XA Contusion of scalp, initial encounter (principal); S00.83XA Contusion of other part of head, initial encounter; S50.812A Abrasion of left forearm, initial encounter; S50.811A Abrasion of right forearm, initial encounter; I10 Essential (primary) hypertension; E78.5 Hyperlipidemia, unspecified; F03.90 Unspecified dementia, unspecified severity, without behavioral disturbance, psychotic disturbance, mood disturbance, and anxiety; Z79.51 Long term (current) use of inhaled steroids; Z79.899 Other long term (current) drug therapy; Z79.02 Long term (current) use of antithrombotics/antiplatelets; Z88.8 Allergy status to other drugs, medicaments and biological substances; Z86.73 Personal history of transient ischemic attack (TIA), and cerebral infarction without residual deficits; W06.XXXA Fall from bed, initial encounter; Y92.003 Bedroom of unspecified non-institutional (private) residence as the place of occurrence of the external cause
CPT/HCPCS: 36415; 93005; 86900; 86901; 80053; 82550; 84484; 85025; 85610; 85730; 86850; 81003; 80306; 72170; 73060 ×2; 73090 ×2; 71045; 72125; 70450; 90715; 99284; 90471; G0480; 80320

== ENCOUNTER 2021-02-07 17:56 | Inpatient (IN) | payer MEDICARE ==
[2021-02-07] MEDS ORDERED: SODIUM CHLORIDE 0.9% 1,000 ML IV STA (18:01)
[2021-02-07 18:25] LABS: Basophils % (A) 0 %; Eosinophils % (A) 0 %; Hypochromasia Marked; Lymphocytes # (A) 0.2 k/uL (1.0-4.8); Lymphocytes % (A) 6 %; MCH 32.4 pg (25.0-35.0); MCHC 31.2 g/dL (31.0-37.0); MCV 103.7 fL (80.0-100.0); Macrocytosis Slight; Mean Platelet Volume 10.1; Monocytes # (A) 0.2 k/uL (0-1.0); Monocytes % (A) 6 %; Neutrophils # (A) 3.8 k/uL (1.3-7.7); RBC 1.29 m/uL (4.30-5.90); RDW 14.3 % (11.5-15.5); WBC 4.4 k/uL (3.8-10.6)
[2021-02-07 18:34] LABS: INR 2.7 (<1.2); Partial Thromboplastin Time 59.9 sec (22.0-30.0)
[2021-02-07 18:49] LABS: Albumin 1.4 g/dL (3.5-5.0); Magnesium 2.4 mg/dL (1.6-2.3); Total Bilirubin 0.4 mg/dL (0.2-1.3); Total Protein 3.4 g/dL (6.3-8.2)
--- NOTE | 2021-02-07 19:01 | XR ---
EXAMINATION TYPE: XR chest 1V portable DATE OF EXAM: 02/07/2021 COMPARISON: 10/14/2020 HISTORY: Altered mental status TECHNIQUE: Single view FINDINGS: There is elevated right diaphragm with some atelectasis right lung base. Left lung is clear . There is no heart failure. Thoracic aorta is atheromatous. There are chest leads. IMPRESSION: There is some atelectasis right lung base slightly increased compared to old exam. No hea rt failure.
[2021-02-07 19:02] LABS: Potassium 2.2 mmol/L (3.5-5.1)
--- NOTE | 2021-02-07 19:02 | ED ---
General Adult HPI - General Chief complaint: Altered Mental Status Stated complaint: Altered Mental Status Time Seen by Provider: 02/07/21 18:01 Source: family, EMS, RN notes reviewed, old records reviewed Mode of arrival: EMS Limitations: altered mental status - History of Present Illness Initial comments: 80-year-old male history of Lewy body dementia and Parkinson's presenting for evaluation of what altered mental status, poor appetite, failure to thrive. Patient was transported from [place] after a prolonged inpatient stay. He has had a steady decline over the past one month. History is obtained from the patient's who states that she was informed that with his history of dementia a prolonged period of isolation can result in a rapid cognitive decline and the patient should be treated medically for a period of time awaiting improvement in his mental status. He has not been eating or drinking well. There's been no reported fever. No vomiting. Patient is resulting in extremis is a full code. He was hypoxic, agonal respirations and hypotensive upon arrival. IV fluid was initiated by EMS. - Related Data Home Medications Medication Instructions Recorded Confirmed Bimatoprost [Lumigan .01% Ophth 1 drop BOTH EYES HS 03/01/16 02/07/21 Soln] Ezetimibe [Zetia] 10 mg PO DAILY 03/01/16 02/07/21 Montelukast [Singulair] 10 mg PO HS 03/01/16 02/07/21 Clopidogrel [Plavix] 75 mg PO DAILY 06/21/18 02/07/21 Losartan Potassium 50 mg PO BID 06/21/18 02/07/21 Metoprolol Succinate (ER) [Toprol 50 mg PO DAILY 06/21/18 02/07/21 XL] Donepezil HCl [Aricept] 10 mg PO HS 10/14/20 02/07/21 amLODIPine [Norvasc] 5 mg PO DAILY 10/14/20 02/07/21 Mirtazapine 7.5 mg PO HS 02/07/21 02/07/21 Allergies Allergy/AdvReac Type Severity Reaction Status Date / Time carbidopa AdvReac Hallucinations Verified 02/07/21 19:42 ON HIGH DOSES, LOW DOSE OK levodopa AdvReac Hallucinations Verified 02/07/21 19:42 ON HIGH DOSES, LOW DOSE OK Review of Systems ROS Statement: Those systems with pertinent positive or pertinent negative responses have been documented in the HPI. ROS Other: All systems not noted in ROS Statement are negative. Past Medical History Past Medical History: CVA/TIA, Dementia, Hyperlipidemia, Hypertension Additional Past Medical History / Comment(s): polio as a child, Parkinsons History of Any Multi-Drug Resistant Organisms: None Reported Past Surgical History: Orthopedic Surgery Additional Past Surgical History / Comment(s): as an infant pt states he had surgery to his right arm. Past Psychological History: No Psychological Hx Reported Smoking Status: Never smoker Past Alcohol Use History: None Reported Past Drug Use History: None Reported - Past Family History Father Family Medical History: Cancer Additional Family Medical History / Comment(s): Pancreatic Mother Family Medical History: Cancer General Exam Limitations: altered mental status General appearance: lethargic Head exam: Present: atraumatic, normocephalic Eye exam: Present: PERRL ENT exam: Present: mucous membranes dry, other ( He is protecting his airway.) Neck exam: Present: normal inspection Respiratory exam: Present: respiratory distress, rhonchi, other (Patient has improved respirations after supplemental oxygen and IV fluids.) Cardiovascular Exam: Present: tachycardia, irregular rhythm GI/Abdominal exam: Present: soft. Absent: distended, tenderness Extremities exam: Present: other (Directed right upper extremity) Neurological exam: Present: other (Patient will grimace to sternal rub). Absent: alert, oriented X3 Psychiatric exam: Present: normal affect, normal mood Skin exam: Present: warm, dry, intact. Absent: cyanosis, diaphoretic Course Vital Signs 02/07/21 02/07/21 02/07/21 18:02 18:18 19:56 Temperature 97.6 F Pulse Rate 46 L 87 71 Respiratory 14 14 16 Rate Blood Pressure 69/58 93/73 95/60 O2 Sat by Pulse 90 L 90 L 98 Oximetry EKG Findings - EKG Comments: EKG Findings:: EKG: Narrow complex rhythm, suspect underlying atrial fibrillation, rate of 101, [place] interval 142, QRS duration 84. Medical Decision Making - Medical Decision Making 80-year-old male presenting in extremis. We did have a discussion of CODE STATUS at length with the patient's . This time the patient will be a DO NOT RESUSCITATE and DO NOT INTUBATE but medical management will be continued including IV hydration. Patient had significant laboratory abnormalities on initial blood draw to the point where I had down about these values. I did repeat both CBC and CMP. He is hypernatremic, he is in acute renal failure with elevated BUN and creatinine. His sodium is 170. Potassium is 3.8. Chest x- ray showing left hemidiaphragm elevation which is new. Urinalysis pending. Case discussed with Dr. Oquendo and with the admitting physician Dr. Florez. - Lab Data Result diagrams: 02/07/21 19:25 02/07/21 19:25 Lab Results 02/07/21 02/07/21 02/07/21 Range/Units 18:17 18:17 18:17 WBC 4.4 (3.8-10.6) k/uL RBC 1.29 L (4.30-5.90) m/uL Hgb 4.2 L* (13.0-17.5) gm/dL Hct 13.4 L* (39.0-53.0) % MCV 103.7 H (80.0-100.0) fL MCH 32.4 (25.0-35.0) pg MCHC 31.2 (31.0-37.0) g/dL RDW 14.3 (11.5-15.5) % Plt Count 75 L (150-450) k/uL MPV 10.1 Neutrophils % % Lymphocytes % 6 % Monocytes % 6 % Eosinophils % 0 % Basophils % 0 % Neutrophils # 3.8 (1.3-7.7) k/uL Lymphocytes # 0.2 L (1.0-4.8) k/uL Monocytes # 0.2 (0-1.0) k/uL Eosinophils # 0.0 (0-0.7) k/uL Basophils # 0.0 (0-0.2) k/uL Manual Slide Review Performed Hypochromasia Marked Poikilocytosis (manual Present Macrocytosis Slight Crenated Cell Present PT 26.0 H (9.0-12.0) sec INR 2.7 H (<1.2) APTT 59.9 H (22.0-30.0) sec Sodium 163 H* (137-145) mmol/L Potassium 2.2 L* (3.5-5.1) mmol/L Chloride 140 H* (98-107) mmol/L Carbon Dioxide 15 L (22-30) mmol/L Anion Gap 8 mmol/L BUN 99 H (9-20) mg/dL Creatinine 1.78 H (0.66-1.25) mg/dL Est GFR (CKD-EPI)AfAm 41 (>60 ml/min/1.73 sqM) Est GFR (CKD-EPI)NonAf 35 (>60 ml/min/1.73 sqM) Glucose 89 (74-99) mg/dL Plasma Lactic Acid Reyes (0.7-2.0) mmol/L Calcium 5.2 L* (8.4-10.2) mg/dL Magnesium 2.4 H (1.6-2.3) mg/dL Total Bilirubin 0.4 (0.2-1.3) mg/dL AST 18 (17-59) U/L ALT 10 (4-49) U/L Alkaline Phosphatase 39 (38-126) U/L Troponin I (0.000-0.034) ng/mL Total Protein 3.4 L (6.3-8.2) g/dL Albumin 1.4 L (3.5-5.0) g/dL 02/07/21 02/07/21 02/07/21 Range/Units 18:17 18:17 19:25 WBC (3.8-10.6) k/uL RBC (4.30-5.90) m/uL Hgb (13.0-17.5) gm/dL Hct (39.0-53.0) % MCV (80.0-100.0) fL MCH (25.0-35.0) pg MCHC (31.0-37.0) g/dL RDW (11.5-15.5) % Plt Count (150-450) k/uL MPV Neutrophils % % Lymphocytes % % Monocytes % % Eosinophils % % Basophils % % Neutrophils # (1.3-7.7) k/uL Lymphocytes # (1.0-4.8) k/uL Monocytes # (0-1.0) k/uL Eosinophils # (0-0.7) k/uL Basophils # (0-0.2) k/uL Manual Slide Review Hypochromasia Poikilocytosis (manual Macrocytosis Crenated Cell PT (9.0-12.0) sec INR (<1.2) APTT (22.0-30.0) sec Sodium 170 H* (137-145) mmol/L Potassium 3.8 (3.5-5.1) mmol/L Chloride 136 H* (98-107) mmol/L Carbon Dioxide 24 (22-30) mmol/L Anion Gap 10 mmol/L BUN (9-20) mg/dL Creatinine 2.91 H (0.66-1.25) mg/dL Est GFR (CKD-EPI)AfAm 22 (>60 ml/min/1.73 sqM) Est GFR (CKD-EPI)NonAf 19 (>60 ml/min/1.73 sqM) Glucose 138 H (74-99) mg/dL Plasma Lactic Acid Reyes 1.0 (0.7-2.0) mmol/L Calcium 8.9 (8.4-10.2) mg/dL Magnesium (1.6-2.3) mg/dL Total Bilirubin 0.9 (0.2-1.3) mg/dL AST 27 (17-59) U/L ALT 15 (4-49) U/L Alkaline Phosphatase 69 (38-126) U/L Troponin I 0.020 (0.000-0.034) ng/mL Total Protein 5.4 L (6.3-8.2) g/dL Albumin 2.7 L (3.5-5.0) g/dL 02/07/21 Range/Units 19:25 WBC 13.9 H (3.8-10.6) k/uL RBC 4.25 L (4.30-5.90) m/uL Hgb 12.8 L D (13.0-17.5) gm/dL Hct 43.2 (39.0-53.0) % MCV 101.6 H (80.0-100.0) fL MCH 30.2 (25.0-35.0) pg MCHC 29.7 L (31.0-37.0) g/dL RDW 14.5 (11.5-15.5) % Plt Count 237 D (150-450) k/uL MPV 10.0 Neutrophils % 87 % Lymphocytes % 9 % Monocytes % 3 % Eosinophils % 0 % Basophils % 0 % Neutrophils # 12.1 H (1.3-7.7) k/uL Lymphocytes # 1.3 (1.0-4.8) k/uL Monocytes # 0.4 (0-1.0) k/uL Eosinophils # 0.1 (0-0.7) k/uL Basophils # 0.0 (0-0.2) k/uL Manual Slide Review Hypochromasia Moderate Poikilocytosis (manual Macrocytosis Slight Crenated Cell PT (9.0-12.0) sec INR (<1.2) APTT (22.0-30.0) sec Sodium (137-145) mmol/L Potassium (3.5-5.1) mmol/L Chloride (98-107) mmol/L Carbon Dioxide (22-30) mmol/L Anion Gap mmol/L BUN (9-20) mg/dL Creatinine (0.66-1.25) mg/dL Est GFR (CKD-EPI)AfAm (>60 ml/min/1.73 sqM) Est GFR (CKD-EPI)NonAf (>60 ml/min/1.73 sqM) Glucose (74-99) mg/dL Plasma Lactic Acid Reyes (0.7-2.0) mmol/L Calcium (8.4-10.2) mg/dL Magnesium (1.6-2.3) mg/dL Total Bilirubin (0.2-1.3) mg/dL AST (17-59) U/L ALT (4-49) U/L Alkaline Phosphatase (38-126) U/L Troponin I (0.000-0.034) ng/mL Total Protein (6.3-8.2) g/dL Albumin (3.5-5.0) g/dL Disposition Clinical Impression: Altered mental status, Delirium due to general medical condition, Acute renal failure, Hypernatremia Disposition: ADMITTED IP TO THIS [facility] Condition: Serious Is patient prescribed a controlled substance at d/c from ED?: No Referrals: Elroy Bustillo MD [Primary Care Provider] - 1-2 days Decision to Admit Reason: Admit from EC Decision Date: 02/07/21 Decision Time: 20:18
[2021-02-07 19:03] LABS: Calcium 5.2 mg/dL (8.4-10.2)
[2021-02-07 19:37] LABS: Basophils % (A) 0 %; Eosinophils # (A) 0.1 k/uL (0-0.7); Eosinophils % (A) 0 %; HCT 43.2 % (39.0-53.0); Hypochromasia Moderate; Lymphocytes # (A) 1.3 k/uL (1.0-4.8); Lymphocytes % (A) 9 %; MCH 30.2 pg (25.0-35.0); MCHC 29.7 g/dL (31.0-37.0); MCV 101.6 fL (80.0-100.0); Macrocytosis Slight; Monocytes # (A) 0.4 k/uL (0-1.0); Monocytes % (A) 3 %; Neutrophils # (A) 12.1 k/uL (1.3-7.7); Neutrophils % (A) 87 %; RBC 4.25 m/uL (4.30-5.90); RDW 14.5 % (11.5-15.5); WBC 13.9 k/uL (3.8-10.6)
[2021-02-07 19:47] LABS: Crenated RBC Present; Poikilocytosis (M) Present
[2021-02-07 19:52] LABS: Albumin 2.7 g/dL (3.5-5.0); Calcium 8.9 mg/dL (8.4-10.2); Potassium 3.8 mmol/L (3.5-5.1); Total Bilirubin 0.9 mg/dL (0.2-1.3); Total Protein 5.4 g/dL (6.3-8.2)
[2021-02-07 20:11] LABS: HGB 12.8 gm/dL (13.0-17.5); Platelet Count 237 k/uL (150-450)
[2021-02-07] MEDS ORDERED: HYDROmorphone 0.5 MG/0.5 ML SYRINGE IVP PRN (20:14)
[2021-02-07] MEDS ORDERED: NALOXONE 0.4 MG/ML 1 ML VIAL IV PRN (20:14)
[2021-02-07] MEDS ORDERED: ACETAMINOPHEN TAB 325 MG TAB PO PRN (20:14)
[2021-02-07] MEDS ORDERED: SODIUM CHLORIDE 0.9% 1,000 ML IV SCH (20:15)
[2021-02-07 20:16] LABS: Appearance,Urine Cloudy (Clear); Bacteria,Urine Rare /hpf; Bilirubin,Urine Negative (Negative); Blood,Urine Small (Negative); Color,Urine Yellow; Glucose,Urine (UA) Negative (Negative); Hyaline Casts,Urine 50 /lpf (0-2); Ketones,Urine Negative (Negative); Leukocyte Esterase,Urine Negative (Negative); Mucus,Urine Rare /hpf; Nitrite,Urine Negative (Negative); Protein,Urine Negative (Negative); RBC,Urine 2 /hpf (0-5); Specific Gravity,Urine 1.018 (1.001-1.035); Squamous Epithelial Cell,Urine 1 /hpf (0-4); Urobilinogen,Urine <2.0 mg/dL (<2.0); WBC,Urine 4 /hpf (0-5)
[2021-02-07] MEDS ORDERED: cefTRIAXone IN SWFI 1,000 MG/10 ML SYRINGE IVP STA (20:16)
[2021-02-07] MEDS ORDERED: DEXTROSE 5% IN WATER 1,000 ML IV SCH (22:15)
[2021-02-07 23:20] LABS: Potassium 3.3 mmol/L (3.5-5.1)
[2021-02-08] MEDS ORDERED: DEXTROSE 5%-0.45% NACL 1,000 ML IV SCH (00:15)
[2021-02-08] MEDS ORDERED: SODIUM CHLORIDE 0.9% 1,000 ML IV ONE (00:24)
--- NOTE | 2021-02-08 01:20 | P.HPIM ---
History of Present Illness H&P Date: 02/07/21 The patient is an 80-year-old male with a PMH of bleed body dementia, Parkinson's, R arm atrophy (childhood illness), hypertension, hyperlipidemia, and a history of CVA who was brought into the emergency room by his for failure to thrive and altered mental status. The history is provided by the at the bedside. She reports that the patient is from [place] and that they had recently moved to [place] where 2 months ago they patient had developed an ankle ulcer requiring a hospital stay with IV antibiotics. The patient initially did well but then had recurrence of his infection requiring yet another hospitalization and a broader course of antibiotics. Following this course, the patient reportedly developed C. diff colitis and after a prolonged hospitalization was discharged to a rehab facility in [place]. The patient had to undergo quarantine for 14 days after which when the went to visit him she found him to be nonverbal, lethargic, and overall ill appearing. The subsequently brought him via private ambulance from [place] to [place]. He was seen at their home by a home care nurse who advised them to go to the emergency room. The notes that prior to his second hospitalization, the patient was walking without assistance, able to bath himself and participated in his ADLs with some assistance. She notes that following a discussion with his neurologist, she was advised that in patients with lewy body dementia, prolonged isolation such as in the case of a quarantine, the patient's may take 4-6 weeks for their cognition to return to baseline. The patient was not following any directions and thereby no history could be ascertained from him. Patient underwent an extensive evaluation in the emergency room with vital signs upon presentation BP 93/73, pulse 87, SpO2 90% on 6 L nasal cannula. Chest x- ray revealed some right lung base atelectasis with EKG showing poor baseline at 101 bpm. Temperature evaluation was remarkable for leukocytosis at 13.9, hemoglobin 12.8, sodium 170, potassium 3.8, Cr 2.91, lactic acid 1.0, and albumin 2.7. Review of Systems Unable to obtain ROS unobtainable: due to mental status Past Medical History Past Medical History: CVA/TIA, Dementia, Hyperlipidemia, Hypertension Additional Past Medical History / Comment(s): polio as a child, Parkinsons History of Any Multi-Drug Resistant Organisms: None Reported Past Surgical History: Orthopedic Surgery Additional Past Surgical History / Comment(s): as an infant pt states he had surgery to his right arm. Past Psychological History: No Psychological Hx Reported Smoking Status: Never smoker Past Alcohol Use History: None Reported Past Drug Use History: None Reported - Past Family History Father Family Medical History: Cancer Additional Family Medical History / Comment(s): Pancreatic Mother Family Medical History: Cancer Medications and Allergies Home Medications Medication Instructions Recorded Confirmed Type Bimatoprost [Lumigan .01% Ophth 1 drop BOTH EYES HS 03/01/16 02/07/21 History Soln] Ezetimibe [Zetia] 10 mg PO DAILY 03/01/16 02/07/21 History Montelukast [Singulair] 10 mg PO HS 03/01/16 02/07/21 History Clopidogrel [Plavix] 75 mg PO DAILY 06/21/18 02/07/21 History Losartan Potassium 50 mg PO BID 06/21/18 02/07/21 History Metoprolol Succinate (ER) [Toprol 50 mg PO DAILY 06/21/18 02/07/21 History XL] Donepezil HCl [Aricept] 10 mg PO HS 10/14/20 02/07/21 History amLODIPine [Norvasc] 5 mg PO DAILY 10/14/20 02/07/21 History Mirtazapine 7.5 mg PO HS 02/07/21 02/07/21 History Allergies Allergy/AdvReac Type Severity Reaction Status Date / Time carbidopa AdvReac Hallucinations Verified 02/07/21 19:42 ON HIGH DOSES, LOW DOSE OK levodopa AdvReac Hallucinations Verified 02/07/21 19:42 ON HIGH DOSES, LOW DOSE OK Physical Exam Vitals: Vital Signs Temp Pulse Resp BP Pulse Ox 02/07/21 21:36 66 14 87/54 99 02/07/21 21:00 69 18 80/39 98 02/07/21 20:29 73 16 90/60 98 02/07/21 19:56 71 16 95/60 98 02/07/21 18:18 87 14 93/73 90 L 02/07/21 18:02 97.6 F 46 L 14 69/58 90 L Intake and Output 02/07/21 02/07/21 02/07/21 06:59 14:59 22:59 Other: Weight 40.823 kg General: Frail elderly male, no distress, appears at stated age Derm: no unusual rashes/lesions no unusual ecchymoses, warm, dry Head: atraumatic, normocephalic, symmetric Eyes: Anicteric sclera, pupils equal round reactive to light ENT: Nose and ears atraumatic, no thrush, no pharyngeal erythema, Neck: No thyromegaly, no cervical lymphadenopathy, trachea midline, supple Mouth: no lip lesion, mucus membranes very dry Cardiovascular: S1S2 reg, no murmur, positive posterior tibial pulse bilateral, no edema, capillary refill less than 2 seconds Lungs: CTA bilateral, no rhonchi, no rales , no accessory muscle use Abdominal: soft, nontender to palpation, no guarding, no appreciable organ omegaly, normal bowel sounds Ext: R arm atrophy, moving all remaining extremities on noxious stimuli Neuro: Unable to perform, no gross focal deficits noted, groans on noxious stimuli, not following any commands Psych: Unable to asses Results CBC & Chem 7: 02/07/21 19:25 02/07/21 22:50 Labs: Abnormal Lab Results - Last 24 Hours (Table) 02/07/21 02/07/21 02/07/21 Range/Units 18:17 18:17 18:17 WBC (3.8-10.6) k/uL RBC 1.29 L (4.30-5.90) m/uL Hgb 4.2 L* (13.0-17.5) gm/dL Hct 13.4 L* (39.0-53.0) % MCV 103.7 H (80.0-100.0) fL MCHC (31.0-37.0) g/dL Plt Count 75 L (150-450) k/uL Neutrophils # (1.3-7.7) k/uL Lymphocytes # 0.2 L (1.0-4.8) k/uL PT 26.0 H (9.0-12.0) sec INR 2.7 H (<1.2) APTT 59.9 H (22.0-30.0) sec Sodium 163 H* (137-145) mmol/L Potassium 2.2 L* (3.5-5.1) mmol/L Chloride 140 H* (98-107) mmol/L Carbon Dioxide 15 L (22-30) mmol/L BUN 99 H (9-20) mg/dL Creatinine 1.78 H (0.66-1.25) mg/dL Glucose (74-99) mg/dL Calcium 5.2 L* (8.4-10.2) mg/dL Magnesium 2.4 H (1.6-2.3) mg/dL Total Protein 3.4 L (6.3-8.2) g/dL Albumin 1.4 L (3.5-5.0) g/dL Urine Blood (Negative) Urine Bacteria (None) /hpf Hyaline Casts (0-2) /lpf Urine Mucus (None) /hpf 02/07/21 02/07/21 02/07/21 Range/Units 19:25 19:25 20:07 WBC 13.9 H (3.8-10.6) k/uL RBC 4.25 L (4.30-5.90) m/uL Hgb 12.8 L D (13.0-17.5) gm/dL Hct (39.0-53.0) % MCV 101.6 H (80.0-100.0) fL MCHC 29.7 L (31.0-37.0) g/dL Plt Count (150-450) k/uL Neutrophils # 12.1 H (1.3-7.7) k/uL Lymphocytes # (1.0-4.8) k/uL PT (9.0-12.0) sec INR (<1.2) APTT (22.0-30.0) sec Sodium 170 H* (137-145) mmol/L Potassium (3.5-5.1) mmol/L Chloride 136 H* (98-107) mmol/L Carbon Dioxide (22-30) mmol/L BUN (9-20) mg/dL Creatinine 2.91 H (0.66-1.25) mg/dL Glucose 138 H (74-99) mg/dL Calcium (8.4-10.2) mg/dL Magnesium (1.6-2.3) mg/dL Total Protein 5.4 L (6.3-8.2) g/dL Albumin 2.7 L (3.5-5.0) g/dL Urine Blood Small H (Negative) Urine Bacteria Rare H (None) /hpf Hyaline Casts 50 H (0-2) /lpf Urine Mucus Rare H (None) /hpf Assessment and Plan Plan: Severe hypernatremia, likely due to severe dehydration -4.3 L free water deficit -Goal of correction no greater than 10 mmol/L in 24 hours -C/w D5 1/2 NS @ 100 cc/hr -Monitor BMP q6h Hypotension, suspected from dehydration -Continue with IVFs -S/p Ceftriaxone in ED Altered mental status, likely multifactorial with acute toxic metabolic encephalopathy from multiple severe electrolyte derangements with history of dementia -Continue with above management Hypokalemia -Replace and monitor Coagulopathy -Likely lab error due to significantly abnormal studies -Repeat in am Chronic conditions: HTN, HLD, dementia -Hold anti-hypertensives -Hold PO meds since patient unlikely able to swallow medications at this time -[employer] eval DVT prophylaxis -Heparin subq The patient is admitted with an anticipated greater than 2 midnight stay for evaluation of failure to thrive CODE STATUS: No Code Discussed with: Anticipated discharge date: 4-[address]: [facility] A total of 45 minutes was spent on the care of this complex patient more than 50% of the time was spent in counseling and care coordination.
--- NOTE | 2021-02-08 01:23 | P.PN ---
Progress Note - Text Progress Note Date: 02/08/21 Advanced Care Planning Active Diagnosis: Failure to thrive Persons present: Patient, Summary: Discussed the patient's goals of care in extensive detail with the (Medical POA). She noted that in light of her conversation with the patient's neurologist regarding a possibility for improvement in his mentation, that she wishes to "give him a fighting chance". She understands that his prognosis remains guarded due to his history of dementia and Parkinson along with significant laboratory abnormalities. She wishes for him to be a No Code but is open to additional forms of life support on a case by case bases. Time spent: Total time spent face to face in education and discussion directly related to advanced care plannin minutes
[2021-02-08] MEDS: POTASSIUM CHLORIDE 10 MEQ in WATER FOR INJECTION 1 100ML.BAG IVPB SCH ×4 (02:17→04:40)
[2021-02-08] MEDS: HEPARIN SODIUM,PORCINE/PF 5,000 UNIT/0.5 ML SYRINGE SQ SCH ×3 (08:20→23:09)
[2021-02-08] MEDS: CLOPIDOGREL 75 MG TAB PO SCH (08:48)
[2021-02-08] MEDS: EZETIMIBE 10 MG TAB PO SCH (08:48)
[2021-02-08] MEDS ORDERED: DEXTROSE 5% IN WATER 1,000 ML IV ONE (09:46)
--- NOTE | 2021-02-08 10:28 | P.PN ---
Subjective Progress Note Date: 02/08/21 Patient is awake and alert when I saw him. He is staring to the ceiling. He is not responding to any questions and not turning his head. His only responding to painful stimuli with grimacing. Repeat lab work from this morning is still pending. Objective - Vital Signs Vital signs: Vital Signs Temp 96.7 F L 02/08/21 08:50 Pulse 50 L 02/08/21 08:56 Resp 13 02/08/21 08:56 BP 98/53 02/08/21 08:50 Pulse Ox 100 02/08/21 08:50 Intake & Output 02/07/21 02/08/21 02/08/21 18:59 06:59 18:59 Output Total 400 Balance -400 Weight 40.823 kg 40.8 kg Output: Urine 400 Other: Voiding Method Indwelling Catheter - Exam General: The patient is awake and alert, he appears chronically ill Eye: there is normal conjunctiva bilaterally. Neck: The neck is supple, there is no JVD. Cardiovascular: Normal S1-S2, no S3-S4, no murmurs. Respiratory: Lungs clear to auscultation bilaterally Gastrointestinal: Abdomen is soft, nontender Musculoskeletal: There is no pedal edema. Neurological:. Unable to perform as patient is not cooperative. Skin: Skin is warm and dry - Labs CBC & Chem 7: 02/07/21 19:25 02/07/21 22:50 Labs: Abnormal Lab Results - Last 24 Hours (Table) 02/07/21 02/07/21 02/07/21 Range/Units 18:17 18:17 18:17 WBC (3.8-10.6) k/uL RBC 1.29 L (4.30-5.90) m/uL Hgb 4.2 L* (13.0-17.5) gm/dL Hct 13.4 L* (39.0-53.0) % MCV 103.7 H (80.0-100.0) fL MCHC (31.0-37.0) g/dL Plt Count 75 L (150-450) k/uL Neutrophils # (1.3-7.7) k/uL Lymphocytes # 0.2 L (1.0-4.8) k/uL PT 26.0 H (9.0-12.0) sec INR 2.7 H (<1.2) APTT 59.9 H (22.0-30.0) sec Sodium 163 H* (137-145) mmol/L Potassium 2.2 L* (3.5-5.1) mmol/L Chloride 140 H* (98-107) mmol/L Carbon Dioxide 15 L (22-30) mmol/L BUN 99 H (9-20) mg/dL Creatinine 1.78 H (0.66-1.25) mg/dL Glucose (74-99) mg/dL Calcium 5.2 L* (8.4-10.2) mg/dL Magnesium 2.4 H (1.6-2.3) mg/dL Total Protein 3.4 L (6.3-8.2) g/dL Albumin 1.4 L (3.5-5.0) g/dL Urine Blood (Negative) Urine Bacteria (None) /hpf Hyaline Casts (0-2) /lpf Urine Mucus (None) /hpf 02/07/21 02/07/21 02/07/21 Range/Units 19:25 19:25 20:07 WBC 13.9 H (3.8-10.6) k/uL RBC 4.25 L (4.30-5.90) m/uL Hgb 12.8 L D (13.0-17.5) gm/dL Hct (39.0-53.0) % MCV 101.6 H (80.0-100.0) fL MCHC 29.7 L (31.0-37.0) g/dL Plt Count (150-450) k/uL Neutrophils # 12.1 H (1.3-7.7) k/uL Lymphocytes # (1.0-4.8) k/uL PT (9.0-12.0) sec INR (<1.2) APTT (22.0-30.0) sec Sodium 170 H* (137-145) mmol/L Potassium (3.5-5.1) mmol/L Chloride 136 H* (98-107) mmol/L Carbon Dioxide (22-30) mmol/L BUN (9-20) mg/dL Creatinine 2.91 H (0.66-1.25) mg/dL Glucose 138 H (74-99) mg/dL Calcium (8.4-10.2) mg/dL Magnesium (1.6-2.3) mg/dL Total Protein 5.4 L (6.3-8.2) g/dL Albumin 2.7 L (3.5-5.0) g/dL Urine Blood Small H (Negative) Urine Bacteria Rare H (None) /hpf Hyaline Casts 50 H (0-2) /lpf Urine Mucus Rare H (None) /hpf 02/07/21 Range/Units 22:50 WBC (3.8-10.6) k/uL RBC (4.30-5.90) m/uL Hgb (13.0-17.5) gm/dL Hct (39.0-53.0) % MCV (80.0-100.0) fL MCHC (31.0-37.0) g/dL Plt Count (150-450) k/uL Neutrophils # (1.3-7.7) k/uL Lymphocytes # (1.0-4.8) k/uL PT (9.0-12.0) sec INR (<1.2) APTT (22.0-30.0) sec Sodium 169 H* (137-145) mmol/L Potassium 3.3 L (3.5-5.1) mmol/L Chloride 138 H* (98-107) mmol/L Carbon Dioxide (22-30) mmol/L BUN (9-20) mg/dL Creatinine (0.66-1.25) mg/dL Glucose (74-99) mg/dL Calcium (8.4-10.2) mg/dL Magnesium (1.6-2.3) mg/dL Total Protein (6.3-8.2) g/dL Albumin (3.5-5.0) g/dL Urine Blood (Negative) Urine Bacteria (None) /hpf Hyaline Casts (0-2) /lpf Urine Mucus (None) /hpf Assessment and Plan Assessment: This is a 80-year-old male with very complex past medical history noted below significant for Lewy body dementia who presented to the emergency room by his wi fe secondary to failure to thrive and altered mental status. Patient was evaluated in the ER and admitted to the hospital for further management of his medical problems noted below. 1. Severe hypovolemic hypernatremia, sodium level peaked at 170. Patient started on IV fluid hydration with D5/half-normal saline and transition to D5 water this morning. I will continue to monitor sodium level every 4 hours. Nephrology consulted for further evaluation. 2. Acute kidney injury, probably secondary to dehydration. Continue aggressive IV fluid hydration. Nephrology following closely. I would order a bladder scan to rule out retention. 3. Hypokalemia, replaced. 4. Acute toxo metabolic encephalopathy secondary to #1 and 2 5. History of essential hypertension now with borderline low blood pressure secondary to dehydration. Hold all home medication and continue to monitor closely 6. Bradycardia, continue to hold metoprolol for now and monitor closely 7. Chronic medical problems: Lewy body dementia, underlying Parkinson's disease, right arm atrophy since childhood, essential hypertension, hyperlipidemia, history of CVA 8. DVT prophylaxis with subcu heparin 9. CODE STATUS: Patient is DO NOT RESUSCITATE/DO NOT INTUBATE. Discussed with his by admitting physician Today, I reviewed his medication list and lab work results. I will check TSH, vitamin B12, and folate level. Continue supportive care. I attempted to call his to clarify baseline mental status but no response. I would try to call later.
--- NOTE | 2021-02-08 10:38 | P.NPCON ---
History of Present Illness - Reason for Consult acute renal failure, hypernatremia - History of Present Illness Reason for presentation: Acute kidney injury and hypernatremia History of present illness: Patient is a 80-year-old male seen in renal consultation for acute kidney injury and hypernatremia. Patient has a history of Parkinson's disease as well as dementia and presented to the hospital with confusion. Patient's appetite has been poor the last few days. Patient was admitted at a hospital in [place] prior to this admission. From the records it appears that he's had a progressive cognitive decline. Patient's sodium level was 163 on admission and increased to 170 and was 169 as of last night. He is currently maintained on half-normal saline 100 mL an hour. Creatinine was also 1.78 initially and then increased to 2.91. Labs from this morning are pending. He has a Titus catheter. Urine output 400 mL so far this admission. He does have history of high blood pressure and was taking losartan as part of his antihypertensive regimen. Losartan is currently held. Blood pressure was very low in the systolic 60s to 70s on admission. It was 98/53 this morning. He did receive 2 L of normal saline bolus on admission. Vital signs are stable. Blood pressure on the lower side. HEENT: Head exam is unremarkable. LUNGS: Breath sounds decreased. HEART: Rate and Rhythm are regular. ABDOMEN: Soft, nontender. EXTREMITITES: No edema. Past Medical History Past Medical History: CVA/TIA, Dementia, Hyperlipidemia, Hypertension Additional Past Medical History / Comment(s): polio as a child, Parkinsons History of Any Multi-Drug Resistant Organisms: None Reported Past Surgical History: Orthopedic Surgery Additional Past Surgical History / Comment(s): as an pt states he had surgery to his right arm. Past Psychological History: No Psychological Hx Reported Smoking Status: Never smoker Past Alcohol Use History: None Reported Past Drug Use History: None Reported - Past Family History Father Family Medical History: Cancer Additional Family Medical History / Comment(s): Pancreatic Mother Family Medical History: Cancer Medications and Allergies Home Medications Medication Instructions Recorded Confirmed Type Bimatoprost [Lumigan .01% Ophth 1 drop BOTH EYES HS 03/01/16 02/07/21 History Soln] Ezetimibe [Zetia] 10 mg PO DAILY 03/01/16 02/07/21 History Montelukast [Singulair] 10 mg PO HS 03/01/16 02/07/21 History Clopidogrel [Plavix] 75 mg PO DAILY 06/21/18 02/07/21 History Losartan Potassium 50 mg PO BID 06/21/18 02/07/21 History Metoprolol Succinate (ER) [Toprol 50 mg PO DAILY 06/21/18 02/07/21 History XL] Donepezil HCl [Aricept] 10 mg PO HS 10/14/20 02/07/21 History amLODIPine [Norvasc] 5 mg PO DAILY 10/14/20 02/07/21 History Mirtazapine 7.5 mg PO HS 02/07/21 02/07/21 History Allergies Allergy/AdvReac Type Severity Reaction Status Date / Time carbidopa AdvReac Hallucinations Verified 02/07/21 19:42 ON HIGH DOSES, LOW DOSE OK levodopa AdvReac Hallucinations Verified 02/07/21 19:42 ON HIGH DOSES, LOW DOSE OK Physical Exam Vitals: Vital Signs Temp Pulse Pulse Resp BP BP Pulse Ox 02/08/21 08:56 50 L 13 02/08/21 08:50 96.7 F L 50 L 13 98/53 100 02/08/21 04:32 109/57 02/08/21 03:30 97.7 F 57 L 18 96/53 100 02/08/21 02:00 56 L 19 101/54 100 02/08/21 00:10 71/50 02/08/21 00:00 95/62 02/07/21 23:45 72/41 02/07/21 23:30 64/42 02/07/21 23:25 97.8 F 62 16 89/53 100 02/07/21 22:00 64 16 94/55 100 02/07/21 21:36 66 14 87/54 99 02/07/21 21:00 69 18 80/39 98 02/07/21 20:29 73 16 90/60 98 02/07/21 19:56 71 16 95/60 98 02/07/21 18:18 87 14 93/73 90 L 02/07/21 18:02 97.6 F 46 L 14 69/58 90 L Intake and Output 02/07/21 02/08/21 02/08/21 22:59 06:59 14:59 Output Total 400 Balance -400 Output: Urine 400 Other: Voiding Method Indwelling Catheter Weight 40.823 kg 40.8 kg Results - Lab Results Most recent lab results Calcium 8.9 mg/dL (8.4-10.2) 02/07/21 19:25 Magnesium 2.4 mg/dL (1.6-2.3) H 02/07/21 18:17 02/07/21 19:25 02/07/21 22:50 Assessment and Plan Plan: Assessment: 1. Acute kidney injury secondary to ATN secondary to hypotension. Creatinine 2.91 as of yesterday evening. Creatinine in September 2020 was 0.71. 2. Hypernatremia from lack of oral water intake. 3. Failure to thrive. 4. History of Parkinson's disease and Lewy body dementia. 5. Hypokalemia from poor intake. Being replaced. 6. Metabolic acidosis secondary to acute kidney injury. Improved. 7. Hemoglobin 4.2 on admission but on repeat was 12.8. No active bleeding. Plan: Stop half-normal saline. Start D5W at 100 mL an hour. Repeat sodium level at 3 PM today. Potassium being replaced. Avoid nephrotoxins. Hold all anti-hypertensives. Continue to bolus with normal saline as needed for hypotension. Overall prognosis poor. Thank you for the consultation. I will continue to follow the patient with you during his hospital stay.
[2021-02-08 11:06] LABS: Calcium 7.8 mg/dL (8.4-10.2); Magnesium 3.5 mg/dL (1.6-2.3); Potassium 3.6 mmol/L (3.5-5.1)
--- NOTE | 2021-02-08 11:14 | P.CNPUL ---
History of Present Illness Consult date: 02/08/21 Chief complaint: Altered mental status History of present illness: 80-year-old male patient, with Lewy body dementia, along with previous history of CVA, hypertension and hyperlipidemia, was brought into the emergency department because of hypotension, altered mentation and failure to thrive. The patient was in [place] and he was brought back to [place]. He developed an ankle ulcer during a hospital stay in [place] and he was also receiving IV antibiotics. During the course of his illness, he developed C. diff colitis and after a prolonged hospitalization he was sent over to rehab. Yesterday, the patient was found to be very much lethargic. He was brought into the hospital he was found to have significant electrolyte abnormalities. On his blood work, the patient had a hemoglobin of 12.8, sodium was 117, chloride was 136, he did have an acute kidney failure with a creatinine of 1.7 and is currently up to 2.9, and his potassium level was at 2.2, replaced at 3.8. UA was negative. COVID-19 testing was negative. He was seen by medicine. He was also seen by nephrology. Patient is currently on a 5W at the rate of 100 mL an hour. Family is at the bedside. Devices signs are stable. He has a Titus catheter in place. Overall, he is still unresponsive. Review of Systems ROS unobtainable: due to mental status Past Medical History Past Medical History: CVA/TIA, Dementia, Hyperlipidemia, Hypertension Additional Past Medical History / Comment(s): polio as a child, Parkinsons , Lewy body dementia, and the patient also has wounds in his coccyx and bilateral ankles. C. diff colitis during an earlier hospitalization. History of Any Multi-Drug Resistant Organisms: None Reported Past Surgical History: Orthopedic Surgery Additional Past Surgical History / Comment(s): as an pt states he had surgery to his right arm. Past Psychological History: No Psychological Hx Reported Smoking Status: Never smoker Past Alcohol Use History: None Reported Past Drug Use History: None Reported - Past Family History Father Family Medical History: Cancer Additional Family Medical History / Comment(s): Pancreatic Mother Family Medical History: Cancer Medications and Allergies Home Medications Medication Instructions Recorded Confirmed Type Bimatoprost [Lumigan .01% Ophth 1 drop BOTH EYES HS 03/01/16 02/07/21 History Soln] Ezetimibe [Zetia] 10 mg PO DAILY 03/01/16 02/07/21 History Montelukast [Singulair] 10 mg PO HS 03/01/16 02/07/21 History Clopidogrel [Plavix] 75 mg PO DAILY 06/21/18 02/07/21 History Losartan Potassium 50 mg PO BID 06/21/18 02/07/21 History Metoprolol Succinate (ER) [Toprol 50 mg PO DAILY 06/21/18 02/07/21 History XL] Donepezil HCl [Aricept] 10 mg PO HS 10/14/20 02/07/21 History amLODIPine [Norvasc] 5 mg PO DAILY 10/14/20 02/07/21 History Mirtazapine 7.5 mg PO HS 02/07/21 02/07/21 History Allergies Allergy/AdvReac Type Severity Reaction Status Date / Time carbidopa AdvReac Hallucinations Verified 02/07/21 19:42 ON HIGH DOSES, LOW DOSE OK levodopa AdvReac Hallucinations Verified 02/07/21 19:42 ON HIGH DOSES, LOW DOSE OK Physical Exam Vitals: Vital Signs Temp Pulse Pulse Resp BP BP Pulse Ox 02/08/21 08:56 50 L 13 02/08/21 08:50 96.7 F L 50 L 13 98/53 100 02/08/21 04:32 109/57 02/08/21 03:30 97.7 F 57 L 18 96/53 100 02/08/21 02:00 56 L 19 101/54 100 02/08/21 00:10 71/50 02/08/21 00:00 95/62 02/07/21 23:45 72/41 02/07/21 23:30 64/42 02/07/21 23:25 97.8 F 62 16 89/53 100 02/07/21 22:00 64 16 94/55 100 02/07/21 21:36 66 14 87/54 99 02/07/21 21:00 69 18 80/39 98 02/07/21 20:29 73 16 90/60 98 02/07/21 19:56 71 16 95/60 98 02/07/21 18:18 87 14 93/73 90 L 02/07/21 18:02 97.6 F 46 L 14 69/58 90 L Intake and Output 02/07/21 02/08/21 02/08/21 22:59 06:59 14:59 Output Total 400 Balance -400 Output: Urine 400 Other: Voiding Method Indwelling Catheter Weight 40.823 kg 40.8 kg General: Frail elderly male, no distress, appears at stated age Derm: no unusual rashes/lesions no unusual ecchymoses, warm, dry Head: atraumatic, normocephalic, symmetric Eyes: Anicteric sclera, pupils equal round reactive to light ENT: Nose and ears atraumatic, no thrush, no pharyngeal erythema, Neck: No thyromegaly, no cervical lymphadenopathy, trachea midline, supple Mouth: no lip lesion, mucus membranes very dry Cardiovascular: S1S2 reg, no murmur, positive posterior tibial pulse bilateral, no edema, capillary refill less than 2 seconds Lungs: CTA bilateral, no rhonchi, no rales , no accessory muscle use Abdominal: soft, nontender to palpation, no guarding, no appreciable organomegaly, normal bowel sounds Ext: R arm atrophy, moving all remaining extremities on noxious stimuli Neuro: Unable to perform, no gross focal deficits noted, groans on noxious stimuli, not following any commands Psych: Unable to asses Results - Laboratory Findings CBC and BMP: 02/07/21 19:25 02/07/21 22:50 PT/INR, D-dimer PT 26.0 sec (9.0-12.0) H 02/07/21 18:17 INR 2.7 (<1.2) H 02/07/21 18:17 Abnormal lab findings: Abnormal Labs 02/07/21 02/07/21 02/07/21 18:17 18:17 18:17 WBC RBC 1.29 L Hgb 4.2 L* Hct 13.4 L* MCV 103.7 H MCHC Plt Count 75 L Neutrophils # Lymphocytes # 0.2 L PT 26.0 H INR 2.7 H APTT 59.9 H Sodium 163 H* Potassium 2.2 L* Chloride 140 H* Carbon Dioxide 15 L BUN 99 H Creatinine 1.78 H Glucose Calcium 5.2 L* Magnesium 2.4 H Total Protein 3.4 L Albumin 1.4 L Urine Blood Urine Bacteria Hyaline Casts Urine Mucus 02/07/21 02/07/21 02/07/21 19:25 19:25 20:07 WBC 13.9 H RBC 4.25 L Hgb 12.8 L D Hct MCV 101.6 H MCHC 29.7 L Plt Count Neutrophils # 12.1 H Lymphocytes # PT INR APTT Sodium 170 H* Potassium Chloride 136 H* Carbon Dioxide BUN Creatinine 2.91 H Glucose 138 H Calcium Magnesium Total Protein 5.4 L Albumin 2.7 L Urine Blood Small H Urine Bacteria Rare H Hyaline Casts 50 H Urine Mucus Rare H 02/07/21 22:50 WBC RBC Hgb Hct MCV MCHC Plt Count Neutrophils # Lymphocytes # PT INR APTT Sodium 169 H* Potassium 3.3 L Chloride 138 H* Carbon Dioxide BUN Creatinine Glucose Calcium Magnesium Total Protein Albumin Urine Blood Urine Bacteria Hyaline Casts Urine Mucus - Diagnostic Findings Chest x-ray: image reviewed Assessment and Plan Plan: 1 altered mental status, multifactorial 2 Lewy body dementia/Parkinson's disease 3 failure to thrive 4 acute kidney injury severe intravascular volume depletion and dehydration in addition to severe hypernatremia of a hyperchloremic in nature with extensive free water deficit 5 hypertension secondary to hypovolemia, improving 6 hypertension 7 hyperlipidemia 8 dementia 9 history of C. diff colitis 10 wounds involving the ankles and the coccyx Plan DNR/DNI CODE STATUS Continue fluid resuscitation with D5 water Replace electrolytes Monitor renal function Nothing much can be added from the pulmonary or critical standpoint. The patient is known to Dr. Bustillo. . In fact he is his primary care. We'll see on an as-needed basis. I will leave the rest of the management to the medical group.
[2021-02-08 11:49] LABS: INR 1.4 (<1.2); Partial Thromboplastin Time 31.4 sec (22.0-30.0); Prothrombin Time 14.3 sec (9.0-12.0)
[2021-02-08 12:30] LABS: HGB 11.1 gm/dL (13.0-17.5); Hypochromasia Marked; MCH 31.9 pg (25.0-35.0); MCHC 29.9 g/dL (31.0-37.0); MCV 106.4 fL (80.0-100.0); Macrocytosis Moderate; Mean Platelet Volume 10.3; Platelet Count 171 k/uL (150-450); RBC 3.48 m/uL (4.30-5.90); RDW 14.7 % (11.5-15.5); WBC 12.5 k/uL (3.8-10.6)
--- NOTE | 2021-02-08 14:41 | P.PN ---
Progress Note - Text Progress Note Date: 02/08/21 Today, I had a meeting with the patient's Brandy at bedside. We discussed his current clinical condition. She had a lot of questions on how his sodium level is very elevated at this point. We also discussed his baseline functional status and she told me that a month ago patient was able to walk up and down the street and say hi to neighbors and communicate properly. His overall condition started to decline after his hospitalization in [place] and then transferred to a intermediate facility for COVID-19 quarantine. Brandy also believe that since patient was started on Remeron as an appetite stimulant his condition may have deteriorated further and she read online that is not recommended for Lewy body dementia. She has been to discontinue that medication if possible. Patient's was very realistic as we discussed goals of care. I explained to her that at this point of time we are looking for goals in the next few days and the main goal is to correct his metabolic abnormalities including significant hypernatremia. Patient is currently nothing by mouth. When his mental status started to improve speech pathology will reevaluate him. In the meantime I would obtain a computed tomography scan of his head to rule out any acute intracranial findings. I answered all of her questions to her satisfaction.
[2021-02-08 16:19] LABS: Calcium 8.1 mg/dL (8.4-10.2); Potassium 3.7 mmol/L (3.5-5.1)
[2021-02-08 16:43] LABS: HCT 13.4 % (39.0-53.0); HGB 4.2 gm/dL (13.0-17.5)
[2021-02-08 16:44] LABS: Platelet Count 75 k/uL (150-450)
[2021-02-08] MEDS ORDERED: MIRTAZAPINE 15 MG TAB PO SCH (21:00)
[2021-02-08] MEDS: LATANOPROST 0.005% OPHTH DROPS 2.5 ML BTL BOTH EYES SCH (21:19)
[2021-02-08 21:31] LABS: Calcium 7.9 mg/dL (8.4-10.2); Potassium 3.5 mmol/L (3.5-5.1)
[2021-02-08 21:36] LABS: Folate, Serum 7.2 ng/mL
--- NOTE | 2021-02-08 21:51 | CT ---
EXAMINATION: CT brain wo con DATE AND TIME: 02/08/2021 5:38 PM CLINICAL INDICATION: PHH; AMS TECHNIQUE: Standard departmental protocol; 1044.4 mGy-cm COMPARISON: 10/14/2020 FINDINGS: The calvarium is intact. There is no intracranial hemorrhage. There is no intracranial mass or mass effect. No definite new intra-axial or extra-axial attenuation defect. The paranasal sinuses, middle ear cavities, and mastoid sinus air cells are clear. The orbits are unremarkable. IMPRESSION: NO ACUTE PROCESS.
[2021-02-08] MEDS: DONEPEZIL 10 MG TAB PO SCH (22:33)
[2021-02-08] MEDS: MONTELUKAST 10 MG TAB PO SCH (22:34)
[2021-02-08] MEDS: DEXTROSE 5% IN WATER 1,000 ML IV SCH (23:09)
[2021-02-09] MEDS: DEXTROSE 5% IN WATER 1,000 ML IV SCH ×3 (08:45→19:00)
[2021-02-09] MEDS: HEPARIN SODIUM,PORCINE/PF 5,000 UNIT/0.5 ML SYRINGE SQ SCH ×3 (08:45→23:44)
[2021-02-09] MEDS: EZETIMIBE 10 MG TAB PO SCH (08:46)
[2021-02-09] MEDS: CLOPIDOGREL 75 MG TAB PO SCH (08:46)
[2021-02-09 09:05] LABS: Glucose,Whole Blood 113 mg/dL (75-99)
[2021-02-09 09:52] LABS: INR 1.3 (<1.2); Prothrombin Time 13.4 sec (9.0-12.0)
[2021-02-09 09:55] LABS: Albumin 2.2 g/dL (3.5-5.0); Calcium 8.1 mg/dL (8.4-10.2); Magnesium 3.3 mg/dL (1.6-2.3); Potassium 3.4 mmol/L (3.5-5.1); Total Bilirubin 0.6 mg/dL (0.2-1.3); Total Protein 4.8 g/dL (6.3-8.2)
[2021-02-09 10:19] LABS: Basophils % (A) 0 %; Eosinophils # (A) 0.3 k/uL (0-0.7); Eosinophils % (A) 3 %; HCT 37.4 % (39.0-53.0); HGB 11.4 gm/dL (13.0-17.5); Hypochromasia Moderate; Lymphocytes # (A) 1.9 k/uL (1.0-4.8); Lymphocytes % (A) 17 %; MCH 31.3 pg (25.0-35.0); MCHC 30.4 g/dL (31.0-37.0); MCV 102.8 fL (80.0-100.0); Macrocytosis Slight; Mean Platelet Volume 9.6; Monocytes # (A) 0.4 k/uL (0-1.0); Monocytes % (A) 4 %; Neutrophils # (A) 8.4 k/uL (1.3-7.7); Neutrophils % (A) 75 %; Platelet Count 185 k/uL (150-450); RBC 3.64 m/uL (4.30-5.90); RDW 14.6 % (11.5-15.5); WBC 11.1 k/uL (3.8-10.6)
[2021-02-09] MEDS ORDERED: POTASSIUM CHLORIDE ER 20 MEQ TAB.ER PO STA (10:42)
--- NOTE | 2021-02-09 10:47 | P.PN ---
Subjective Patient is seen in follow-up for hyponatremia and acute kidney injury. Renal function is improving. Sodium level 163 this morning. Currently maintained on D5 W at 1 10 mL an hour. Patient is not a reliable historian. Hemodynamically stable. Vital signs are stable. General: The patient appeared well nourished and normally developed. HEENT: Head exam is unremarkable. Neck is without jugular venous distension. LUNGS: Breath sounds decreased. HEART: Rate and Rhythm are regular. ABDOMEN: Soft, nontender. EXTREMITITES: No edema. Objective - Vital Signs Vital signs: Vital Signs Temp 97.2 F L 02/09/21 08:49 Pulse 70 02/09/21 08:49 Resp 18 02/09/21 08:49 BP 146/68 02/09/21 08:49 Pulse Ox 99 02/09/21 08:49 Intake & Output 02/08/21 02/09/21 02/09/21 18:59 06:59 18:59 Output Total 275 500 Balance -275 -500 Weight 40.8 kg 51.256 kg Output: Urine 275 500 Other: Voiding Method Indwelling Catheter Indwelling Catheter Indwelling Catheter # Bowel Movements 1 - Labs CBC & Chem 7: 02/09/21 08:49 02/09/21 08:49 Labs: Abnormal Lab Results - Last 24 Hours (Table) 02/07/21 02/08/21 02/08/21 Range/Units 18:17 09:52 09:52 WBC 12.5 H (3.8-10.6) k/uL RBC 3.48 L (4.30-5.90) m/uL Hgb 4.2 L* 11.1 L (13.0-17.5) gm/dL Hct 13.4 L* 37.0 L (39.0-53.0) % MCV 106.4 H (80.0-100.0) fL MCHC 29.9 L (31.0-37.0) g/dL Plt Count 75 L (150-450) k/uL PT (9.0-12.0) sec INR (<1.2) APTT (22.0-30.0) sec Sodium 169 H* (137-145) mmol/L Potassium (3.5-5.1) mmol/L Chloride 140 H* (98-107) mmol/L Carbon Dioxide 20 L (22-30) mmol/L BUN 124 H* (9-20) mg/dL Creatinine 2.17 H (0.66-1.25) mg/dL Glucose 149 H (74-99) mg/dL POC Glucose (mg/dL) (75-99) mg/dL Calcium 7.8 L (8.4-10.2) mg/dL Magnesium 3.5 H (1.6-2.3) mg/dL Total Protein (6.3-8.2) g/dL Albumin (3.5-5.0) g/dL Vitamin B12 2534.0 H (200.0-944.0) pg/mL 02/08/21 02/08/21 02/08/21 Range/Units 09:52 15:46 20:39 WBC (3.8-10.6) k/uL RBC (4.30-5.90) m/uL Hgb (13.0-17.5) gm/dL Hct (39.0-53.0) % MCV (80.0-100.0) fL MCHC (31.0-37.0) g/dL Plt Count (150-450) k/uL PT 14.3 H (9.0-12.0) sec INR 1.4 H (<1.2) APTT 31.4 H (22.0-30.0) sec Sodium 166 H* 164 H* (137-145) mmol/L Potassium (3.5-5.1) mmol/L Chloride 139 H* 138 H* (98-107) mmol/L Carbon Dioxide 21 L 21 L (22-30) mmol/L BUN 113 H* 107 H* (9-20) mg/dL Creatinine 1.82 H 1.73 H (0.66-1.25) mg/dL Glucose 137 H 124 H (74-99) mg/dL POC Glucose (mg/dL) (75-99) mg/dL Calcium 8.1 L 7.9 L (8.4-10.2) mg/dL Magnesium (1.6-2.3) mg/dL Total Protein (6.3-8.2) g/dL Albumin (3.5-5.0) g/dL Vitamin B12 (200.0-944.0) pg/mL 04/02/09/21 02/09/21 Range/Units 08:49 08:49 08:49 WBC 11.1 H (3.8-10.6) k/uL RBC 3.64 L (4.30-5.90) m/uL Hgb 11.4 L (13.0-17.5) gm/dL Hct 37.4 L (39.0-53.0) % MCV 102.8 H (80.0-100.0) fL MCHC 30.4 L (31.0-37.0) g/dL Plt Count (150-450) k/uL PT 13.4 H (9.0-12.0) sec INR 1.3 H (<1.2) APTT (22.0-30.0) sec Sodium 163 H* (137-145) mmol/L Potassium 3.4 L (3.5-5.1) mmol/L Chloride 135 H* (98-107) mmol/L Carbon Dioxide 21 L (22-30) mmol/L BUN 91 H (9-20) mg/dL Creatinine 1.61 H (0.66-1.25) mg/dL Glucose 112 H (74-99) mg/dL POC Glucose (mg/dL) (75-99) mg/dL Calcium 8.1 L (8.4-10.2) mg/dL Magnesium 3.3 H (1.6-2.3) mg/dL Total Protein 4.8 L (6.3-8.2) g/dL Albumin 2.2 L (3.5-5.0) g/dL Vitamin B12 (200.0-944.0) pg/mL 02/09/21 Range/Units 09:02 WBC (3.8-10.6) k/uL RBC (4.30-5.90) m/uL Hgb (13.0-17.5) gm/dL Hct (39.0-53.0) % MCV (80.0-100.0) fL MCHC (31.0-37.0) g/dL Plt Count (150-450) k/uL PT (9.0-12.0) sec INR (<1.2) APTT (22.0-30.0) sec Sodium (137-145) mmol/L Potassium (3.5-5.1) mmol/L Chloride (98-107) mmol/L Carbon Dioxide (22-30) mmol/L BUN (9-20) mg/dL Creatinine (0.66-1.25) mg/dL Glucose (74-99) mg/dL POC Glucose (mg/dL) 113 H (75-99) mg/dL Calcium (8.4-10.2) mg/dL Magnesium (1.6-2.3) mg/dL Total Protein (6.3-8.2) g/dL Albumin (3.5-5.0) g/dL Vitamin B12 (200.0-944.0) pg/mL Microbiology - Last 24 Hours (Table) 02/07/21 18:25 Blood Culture - Preliminary Blood No Growth after 24 hours Assessment and Plan Plan: Assessment: 1. Acute kidney injury secondary to ATN secondary to hypotension. Renal func tion improving. Creatinine 1.61 today. Creatinine in September 2020 was 0.71. UA benign. 2. Hypernatremia from lack of oral water intake. Improving with D5W infusion. 3. Failure to thrive. 4. History of Parkinson's disease and Lewy body dementia. 5. Hypokalemia from poor intake. Being replaced. 6. Metabolic acidosis secondary to acute kidney injury. Improved. 7. Hemoglobin 4.2 on admission but on repeat was 12.8. No active bleeding. Hemoglobin 11.4 today. Plan: Increase D5W to 150 mL an hour. Repeat sodium level at 6 PM today. Potassium being replaced. Avoid nephrotoxins. Prognosis poor.
[2021-02-09] MEDS ORDERED: POTASSIUM CHLORIDE 40 MEQ in WATER FOR INJECTION 1 100ML.BAG IVPB STA (10:54)
[2021-02-09] MEDS: POTASSIUM CHLORIDE 10 MEQ in WATER FOR INJECTION 1 100ML.BAG IVPB SCH ×4 (11:32→15:49)
--- NOTE | 2021-02-09 14:36 | P.PN ---
Subjective Progress Note Date: 02/09/21 Hospital course: Patient is an 80-year-old male with a past medical history of body dementia, Parkinson's, hypertension, hyperlipidemia, and previous CVA. He presented to the hospital initially with his secondary to concerns of alteration in mental status, hypotension, and failure to thrive after recent prolonged hospitalization followed by transfer and quarantine at detention facility in [place] and was started on Remeron. It is reported that prior to transfer to detention facility patient was alert and oriented, walking independently, and displayed no difficulties with communication. Patient's reported that during period of isolation patient rapidly declined. She states this is when she made the decision to have him transferred via ambulance back to [place]. Upon arrival to hospital pt was reported to be unresponsive and hypoxic with agonal respirations and significant hypotension with blood pressure of 64/42. Patient was found to be hypernatremic with sodium of 170, in acute renal failure with BUN of 99, creatinine 2.91, and GFR 19 resulting in admission under our services with consultation to nephrology, cardiology, and neurology. Chest x- ray was completed showing mild atelectasis at the right lung base otherwise no acute cardiopulmonary process. CT head negative for acute intracranial process. Physical exam: Unable to complete ROS secondary to patient's unresponsive state. Sodium level slowly improving initially 170. Vital signs stable at this time. General: appears at stated age, no physical or verbal response Derm: warm, dry Head: atraumatic, normocephalic, symmetric Eyes: Pupils equal, round, and reactive to light 3 mm to 1 mm. Unable to assess EOMs as patient is not responding and unable to follow commands. Corneal reflex present. Anicteric sclera Mouth: no lip lesion, mucus membranes dry Cardiovascular: S1S2 normal with regular rate and rhythm. No murmur, gallop, or rub. Posterior tibial pulses palpated bilaterally. Cap refill less than 2 seconds. No lower extremity edema. Lungs: Respirations even, regular, and unlabored on room air. Lungs clear to auscultation bilaterally. No wheezes, rhonchi, or rales noted. No accessory muscle usage. GI/: soft, nontender to palpation, no guarding, no appreciable organomegaly. Titus catheter in place.. Ext: Right upper extremity contracture Neuro: GCS 7. Patient unresponsive to verbal and tactile stimuli. Assessment and Plan of Care: Severe hypovolemic hypernatremia -Initial sodium 170, currently 163. -Continue infusion with D5W at 110 mL's per hour. -Serum sodiums every 6 hours. -Nephrology following, appreciate further recommendations. Acute metabolic encephalopathy likely secondary to severe hypovolemic hypernatremia -Continued treatment of underlying metabolic electrolyte abnormalities with focus on severe hypernatremia. -Continued hydration with D5W at 110 mL/hour. -Nephrology and neurology on consult and following. -Fall precautions and aspiration precautions in place. Acute kidney injury likely secondary to dehydration versus hypoperfusion with initial blood pressure of 64/42. -Initial BUN 99, creatinine 2.91, and GFR 19. Improving with current renal function BUN 91, creatinine 1.61, and GFR of 40. -Continued hydration with IV fluids. -We will continue to monitor closely with repeat a.m. labs. Hypokalemia, improving -Initial potassium 2.2, currently 3.4. -Continue to replace electrolyte abnormalities as needed and monitor closely with repeat a.m. labs. History of hypertension, hypotensive upon arrival 64/42. -Hold home medications at this time and we will continue to monitor vital signs closely. Additional chronic medical conditions include: Lewy body dementia, Parkinson's disease, atrophy of right arm since childhood, hyperlipidemia, and previous CVA. CODE STATUS: DO NOT RESUSCITATE/DO NOT INTUBATE DVT prophylaxis: Heparin Discussed with: RN, plans to discuss with patient's this afternoon. Anticipated discharge date: Clinical course to determine Anticipated discharge place: [facility] A total of 45 minutes was spent on the care of this complex patient more than 50% of the time was spent in counseling and care coordination. Objective - Vital Signs Vital signs: Vital Signs Temp 97.2 F L 02/09/21 08:49 Pulse 70 02/09/21 08:49 Resp 18 02/09/21 08:49 BP 146/68 02/09/21 08:49 Pulse Ox 99 02/09/21 08:49 Intake & Output 02/08/21 02/09/21 02/09/21 18:59 06:59 18:59 Output Total 275 500 Balance -275 -500 Weight 40.8 kg 51.256 kg Output: Urine 275 500 Other: Voiding Method Indwelling Catheter Indwelling Catheter Indwelling Catheter # Bowel Movements 1 - Labs CBC & Chem 7: 02/09/21 08:49 02/09/21 08:49 Labs: Abnormal Lab Results - Last 24 Hours (Table) 02/07/21 02/08/21 02/08/21 Range/Units 18:17 09:52 09:52 WBC 12.5 H (3.8-10.6) k/uL RBC 3.48 L (4.30-5.90) m/uL Hgb 4.2 L* 11.1 L (13.0-17.5) gm/dL Hct 13.4 L* 37.0 L (39.0-53.0) % MCV 106.4 H (80.0-100.0) fL MCHC 29.9 L (31.0-37.0) g/dL Plt Count 75 L (150-450) k/uL PT (9.0-12.0) sec INR (<1.2) APTT (22.0-30.0) sec Sodium 169 H* (137-145) mmol/L Chloride 140 H* (98-107) mmol/L Carbon Dioxide 20 L (22-30) mmol/L BUN 124 H* (9-20) mg/dL Creatinine 2.17 H (0.66-1.25) mg/dL Glucose 149 H (74-99) mg/dL POC Glucose (mg/dL) (75-99) mg/dL Calcium 7.8 L (8.4-10.2) mg/dL Magnesium 3.5 H (1.6-2.3) mg/dL Vitamin B12 2534.0 H (200.0-944.0) pg/mL 02/08/21 02/08/21 02/08/21 Range/Units 09:52 15:46 20:39 WBC (3.8-10.6) k/uL RBC (4.30-5.90) m/uL Hgb (13.0-17.5) gm/dL Hct (39.0-53.0) % MCV (80.0-100.0) fL MCHC (31.0-37.0) g/dL Plt Count (150-450) k/uL PT 14.3 H (9.0-12.0) sec INR 1.4 H (<1.2) APTT 31.4 H (22.0-30.0) sec Sodium 166 H* 164 H* (137-145) mmol/L Chloride 139 H* 138 H* (98-107) mmol/L Carbon Dioxide 21 L 21 L (22-30) mmol/L BUN 113 H* 107 H* (9-20) mg/dL Creatinine 1.82 H 1.73 H (0.66-1.25) mg/dL Glucose 137 H 124 H (74-99) mg/dL POC Glucose (mg/dL) (75-99) mg/dL Calcium 8.1 L 7.9 L (8.4-10.2) mg/dL Magnesium (1.6-2.3) mg/dL Vitamin B12 (200.0-944.0) pg/mL 02/09/21 Range/Units 09:02 WBC (3.8-10.6) k/uL RBC (4.30-5.90) m/uL Hgb (13.0-17.5) gm/dL Hct (39.0-53.0) % MCV (80.0-100.0) fL MCHC (31.0-37.0) g/dL Plt Count (150-450) k/uL PT (9.0-12.0) sec INR (<1.2) APTT (22.0-30.0) sec Sodium (137-145) mmol/L Chloride (98-107) mmol/L Carbon Dioxide (22-30) mmol/L BUN (9-20) mg/dL Creatinine (0.66-1.25) mg/dL Glucose (74-99) mg/dL POC Glucose (mg/dL) 113 H (75-99) mg/dL Calcium (8.4-10.2) mg/dL Magnesium (1.6-2.3) mg/dL Vitamin B12 (200.0-944.0) pg/mL Microbiology - Last 24 Hours (Table) 02/07/21 18:25 Blood Culture - Preliminary Blood No Growth after 24 hours
[2021-02-09 14:51] LABS: Poikilocytosis (M) Present
--- NOTE | 2021-02-09 17:15 | P.CNNES ---
History of Present Illness Consult date: 02/09/21 Requesting physician: Vinnie Piper Reason for Consult: unresponsive with hx of lewy body dementia History of Present Illness: This is an 80-year-old gentleman with history of lewy body dementia, hypertension, hyperlipidemia, Polio that presented to the emergency department on 02/07/2021 altered mental status, poor appetite and failure to thrive. History is obtained from patient's (Callie) and medical records. Patient's she stated that the patient has history of Lewy body dementia diagnosed about 3 years ago and the about 4 weeks ago there were in [place] and that he had infection in the right the foot ankle region and for the last 3 weeks is a condition and mentation has been declining he's been on antibiotic and she stated that he was on a high dose of antibiotic as a result and then he developed diarrhea and as stated above his mentation declined that. Prior to that he was walk on his own, alert, oriented X3 but had delay information retrieval per . [place] he was in the rehab as a result of this but he was not improving so the decided that to bring the patient back home. He has a been having decreased oral intake since his condition. Some of Home medication is Aricept 10 mg daily, Plavix 75 mg daily, Zetia. As stated above his Lewy body dementia was diagnosed about 3 years ago and when he was on Sinemet he had the work worsening of the hallucination therefore stopped. So in the past he was on cervical was stopped since it was making him sleepy but the patient . He was diagnosed with Lewy body dementia and had workup at the [facility]. Workup in the hospital consisted of: Initial vital signs: Blood pressure of 69/58, heart rate of 46, respiratory of 14, temperature of 97.6 Fahrenheit axillary and pulse ox of 90% on 4 L of nasal cannula. Last systolic blood pressure is 118/63. CT of the head is reported as no acute process. White blood cell is 11.1 which is slightly elevated. MCV is 102.8 which is also elevated and a hemoglobin is 11.4 and hematocrit is 37.4 which is slightly low. On presentation the patient hemoglobin was 4.2. Sodium on presentation is 163 then a got high as 170 and the last sodium is 160. Prior to this admission his sodium has been normal range. Creatinine on presentation is 1.7 AE got high as 2.91 and the last one is 1.61. And prior to this admission was normal. AST of 36 and ALT of 16. Serum glucose on presentation to 89 and the last one is 112 in the serum glucose the patient was not hypoglycemic Coagulation study on presentation is PT is 26, INR is 2.7 and the last PTT is 59.9. The last titration study the INR is 1.3 As a result of the hyponatremia and the kidney insufficiency nephrology is on board Review of Systems Review of system is limited with apparent positive and negative as per HPI Past Medical History Past Medical History: CVA/TIA, Dementia, Hyperlipidemia, Hypertension Additional Past Medical History / Comment(s): polio as a child, Parkinsons , Lewy body dementia, and the patient also has wounds in his coccyx and bilateral ankles. C. diff colitis during an earlier hospitalization. History of Any Multi-Drug Resistant Organisms: None Reported Past Surgical History: Orthopedic Surgery Additional Past Surgical History / Comment(s): as an pt states he had surgery to his right arm. Past Psychological History: No Psychological Hx Reported Smoking Status: Never smoker Past Alcohol Use History: None Reported Past Drug Use History: None Reported - Past Family History Father Family Medical History: Cancer Additional Family Medical History / Comment(s): Pancreatic Mother Family Medical History: Cancer Medications and Allergies Home Medications Medication Instructions Recorded Confirmed Type Bimatoprost [Lumigan .01% Ophth 1 drop BOTH EYES HS 03/01/16 02/07/21 History Soln] Ezetimibe [Zetia] 10 mg PO DAILY 03/01/16 02/07/21 History Montelukast [Singulair] 10 mg PO HS 03/01/16 02/07/21 History Clopidogrel [Plavix] 75 mg PO DAILY 06/21/18 02/07/21 History Losartan Potassium 50 mg PO BID 06/21/18 02/07/21 History Metoprolol Succinate (ER) [Toprol 50 mg PO DAILY 06/21/18 02/07/21 History XL] Donepezil HCl [Aricept] 10 mg PO HS 10/14/20 02/07/21 History amLODIPine [Norvasc] 5 mg PO DAILY 10/14/20 02/07/21 History Mirtazapine 7.5 mg PO HS 02/07/21 02/07/21 History Allergies Allergy/AdvReac Type Severity Reaction Status Date / Time carbidopa AdvReac Hallucinations Verified 02/07/21 19:42 ON HIGH DOSES, LOW DOSE OK levodopa AdvReac Hallucinations Verified 02/07/21 19:42 ON HIGH DOSES, LOW DOSE OK Physical Examination - Vital Signs Vital Signs: Vital Signs Temp Pulse Resp BP Pulse Ox 02/09/21 11:54 98.3 F 69 16 118/63 100 02/09/21 08:49 97.2 F L 70 16 146/68 99 02/09/21 04:55 97.8 F 58 L 18 115/62 100 02/08/21 23:15 98.8 F 66 17 106/66 99 02/08/21 21:15 97.9 F 67 17 104/69 99 02/08/21 16:23 59 L 15 02/08/21 16:22 98.1 F 59 L 15 92/60 93 L Intake and Output 02/09/21 02/09/21 02/09/21 06:59 14:59 22:59 Intake Total 0 Output Total 200 500 Balance -200 -500 Intake: Oral 0 Output: Urine 200 500 Other: Voiding Method Indwelling Catheter Indwelling Catheter Weight 51.256 kg GENERAL: The patient is lying in bed and does not seem in acute distress. CHEST: The heart rate is regular rate rhythm. No murmurs to auscultation. LUNG: Clear to auscultation bilaterally no wheezing noted throughout. Not labored breathing. ABDOMEN/GI: Abdomen is not distended. No tenderness to palpation throughout. NEUROLOGICAL: Higher mental function: The patient is drowsy and briefly opens his eyes to voice. Not responding or following commands. Cranial nerves: Manually opened the eys. The pupils are round, equal and reactive to light. Pupils are 2-3mm bilaterally. Primary gaze is midline. No facial weakness. Other than that could not assess rest of the cranial nerves. Motor: The strength is unable to assess because of his lack of cooperation. Has atrophy of right upper extremity (hx of polio). Has increase tone in right elbow. Seems to have decrease tone in bilateral ankle region. Cerebellum: Could not assess. Sensation: Could not asses. Reflexes (right/left): 1+ throughout. Plantars are mute bilaterally. Results - Laboratory Findings CBC and BMP: 02/09/21 08:49 02/09/21 14:14 Abnormal Lab Findings: Abnormal Labs 02/07/21 02/07/21 02/07/21 18:17 18:17 18:17 WBC RBC 1.29 L Hgb 4.2 L* Hct 13.4 L* MCV 103.7 H MCHC Plt Count 75 L Neutrophils # Lymphocytes # 0.2 L PT 26.0 H INR 2.7 H APTT 59.9 H Sodium 163 H* Potassium 2.2 L* Chloride 140 H* Carbon Dioxide 15 L BUN 99 H Creatinine 1.78 H Glucose POC Glucose (mg/dL) Calcium 5.2 L* Magnesium 2.4 H Total Protein 3.4 L Albumin 1.4 L Vitamin B12 Urine Blood Urine Bacteria Hyaline Casts Urine Mucus 02/07/21 02/07/21 02/07/21 19:25 19:25 20:07 WBC 13.9 H RBC 4.25 L Hgb 12.8 L D Hct MCV 101.6 H MCHC 29.7 L Plt Count Neutrophils # 12.1 H Lymphocytes # PT INR APTT Sodium 170 H* Potassium Chloride 136 H* Carbon Dioxide BUN Creatinine 2.91 H Glucose 138 H POC Glucose (mg/dL) Calcium Magnesium Total Protein 5.4 L Albumin 2.7 L Vitamin B12 Urine Blood Small H Urine Bacteria Rare H Hyaline Casts 50 H Urine Mucus Rare H 02/07/21 02/08/21 02/08/21 22:50 09:52 09:52 WBC 12.5 H RBC 3.48 L Hgb 11.1 L Hct 37.0 L MCV 106.4 H MCHC 29.9 L Plt Count Neutrophils # Lymphocytes # PT INR APTT Sodium 169 H* 169 H* Potassium 3.3 L Chloride 138 H* 140 H* Carbon Dioxide 20 L BUN 124 H* Creatinine 2.17 H Glucose 149 H POC Glucose (mg/dL) Calcium 7.8 L Magnesium 3.5 H Total Protein Albumin Vitamin B12 2534.0 H Urine Blood Urine Bacteria Hyaline Casts Urine Mucus 02/08/21 02/08/21 02/08/21 09:52 15:46 20:39 WBC RBC Hgb Hct MCV MCHC Plt Count Neutrophils # Lymphocytes # PT 14.3 H INR 1.4 H APTT 31.4 H Sodium 166 H* 164 H* Potassium Chloride 139 H* 138 H* Carbon Dioxide 21 L 21 L BUN 113 H* 107 H* Creatinine 1.82 H 1.73 H Glucose 137 H 124 H POC Glucose (mg/dL) Calcium 8.1 L 7.9 L Magnesium Total Protein Albumin Vitamin B12 Urine Blood Urine Bacteria Hyaline Casts Urine Mucus 02/09/21 02/09/21 02/09/21 08:49 08:49 08:49 WBC 11.1 H RBC 3.64 L Hgb 11.4 L Hct 37.4 L MCV 102.8 H MCHC 30.4 L Plt Count Neutrophils # 8.4 H Lymphocytes # PT 13.4 H INR 1.3 H APTT Sodium 163 H* Potassium 3.4 L Chloride 135 H* Carbon Dioxide 21 L BUN 91 H Creatinine 1.61 H Glucose 112 H POC Glucose (mg/dL) Calcium 8.1 L Magnesium 3.3 H Total Protein 4.8 L Albumin 2.2 L Vitamin B12 Urine Blood Urine Bacteria Hyaline Casts Urine Mucus 02/09/21 02/09/21 09:02 14:14 WBC RBC Hgb Hct MCV MCHC Plt Count Neutrophils # Lymphocytes # PT INR APTT Sodium 160 H Potassium Chloride Carbon Dioxide BUN Creatinine Glucose POC Glucose (mg/dL) 113 H Calcium Magnesium Total Protein Albumin Vitamin B12 Urine Blood Urine Bacteria Hyaline Casts Urine Mucus Assessment and Plan Assessment: Altered mental status due to metabolic encephalopathy (electrolyte abnormalities hypernatremia (163 initially-->160), hypermagnesemia, DESIRAE), hypotensive due to anemia. Hypernatremia due to lack of oral intake History of Lewy body dementia (3 years ago) Metabolic acidosis due to acute kidney injury Acute kidney insufficiency Anemia (with hemoglobin on admission of 4.2)--improved Macrocytosis due to the anemia Plan: Continue correcting the electrolyte imbalance and mostly hypernatremia. Nephrology is on board and we'll defer the management to the nephrology team. TSH is 0.58, vitamin B12 is 2534 which is high and consider normal and the serum folate is 7.2 and that is considered normal as well. I ordered a routine EEG. We'll not start the patient on an antiepileptic drug unless there is epileptiform discharge or seizure in the EEG. Recommend for the patient to follow-up with a neurologists within 1-2 weeks upon discharge regarding further management of Lewy body dementia. Spoke with the patient's (Kiya) and she stated will give patient 2-3 days and if not improved will consider hospice. The plan is discussed with the patient's nurse Thank you for the consult. Kannan Quintero MD Neuro-Hospitalist Time with Patient: Greater than 30
[2021-02-09] MEDS: LATANOPROST 0.005% OPHTH DROPS 2.5 ML BTL BOTH EYES SCH (20:38)
[2021-02-09] MEDS: DONEPEZIL 10 MG TAB PO SCH (21:15)
[2021-02-09] MEDS: MONTELUKAST 10 MG TAB PO SCH (21:15)
[2021-02-10] MEDS: DEXTROSE 5% IN WATER 1,000 ML IV SCH ×4 (01:16→23:13)
[2021-02-10] MEDS: HEPARIN SODIUM,PORCINE/PF 5,000 UNIT/0.5 ML SYRINGE SQ SCH ×3 (09:49→23:27)
[2021-02-10] MEDS: CLOPIDOGREL 75 MG TAB PO SCH (12:24)
[2021-02-10] MEDS: EZETIMIBE 10 MG TAB PO SCH (12:24)
[2021-02-10 12:58] LABS: Calcium 7.9 mg/dL (8.4-10.2); Magnesium 2.8 mg/dL (1.6-2.3); Potassium 3.7 mmol/L (3.5-5.1)
[2021-02-10 13:00] LABS: HCT 34.3 % (39.0-53.0); Hypochromasia Marked; MCH 32.8 pg (25.0-35.0); MCV 102.4 fL (80.0-100.0); Macrocytosis Slight; Mean Platelet Volume 9.7; Platelet Count 154 k/uL (150-450); RBC 3.35 m/uL (4.30-5.90); RDW 14.3 % (11.5-15.5)
--- NOTE | 2021-02-10 13:49 | P.PN ---
Subjective Progress Note Date: 02/10/21 Principal diagnosis: altered mentation Patient is a 80-year-old male with a history of the body dementia, Parkinson's disease, right arm atrophy since childhood, hypertension, dyslipidemia, and prior CVA who was brought to the emergency by his for failure to thrive and mental status change. Patient was recently at detention facility in [place] where his found him to be nonverbal, lethargic, ill-appearing. He had been recovering form 2 hospitals stays for infected foot ulcer and subsequent C diff infection. When his found him with decreased responsive ness she hired a private ambulance to dry them back from [place] to [place]. On arrival to the ER he was found have a blood pressure of 69/58. Laboratory analysis showed white blood cell count of 13.9, hemoglobin 12.8, sodium 170, potassium 3.8, acute kidney injury with a creatinine of 2.91, COVID testing was negative. He was admitted and started on D5. CT brain showed no acute process. Nephrology was consulted. Sodium was monitored closely. He was seen by neurology and altered mentation bernardo due to electrolyte disturbances in conjunction with underlying dementia. Patient seen and examined at bedside. He opens eyes to verbal stimuli but does not follow commands but is nonverbal. General: ill appearing, no distress, appears at stated age, temprotal and buccal fat pad loss Derm: warm, dry, quarter sized ucler right lateral malelolus covered with black eschar. Head: atraumatic, normocephalic, symmetric Eyes: EOMI, no lid lag, anicteric sclera Mouth: no lip lesion, mucus membranes dry Cardiovascular: S1S2 reg, no murmur, positive posterior tibial pulse bilateral, Lungs: Decreased bs bilateral, no rhonchi, no rales , no accessory muscle use Abdominal: soft, nontender to palpation, no guarding, no appreciable organomegaly Ext: + gross muscle atrophy, no edema, no contractures Neuro: + withdrawal to pain in upper and lower extremities Psych: eyes open to verbal stimuli, not following command, appears comfortable Toxic metabolic encephalopathy with history of underlying Lewy body dementia - supprotive care - correction of electrolytes - neuro recs appreciated: outpatient follow-up - aricept Severe hypernatremia and acute kidney injury secondary to dehydration - continue with D5 - monitor sodium - nephro recs Coagulopathy secondary to poor nutritional status -Continue to monitor intermittently Unstagable ulcer right lateral malelolus ulcer - thera honey for enzamatic debridement - cover with occlusive dressing Hypertension -metoprolol/norvasc on hold with hypotension on admission Dyslipidemia Hypotension, resolved secondary to dehydration Leukocytosis, resolved due to stress Chronic: Parkinson disease, HLD poor overall prognosis DVT prophylaxis: heparin Discussed with: patient, nursing Anticipated discharge: undetermined Anticipated discharge place: undetermined A total of 35 minutes was spent on the care of this complex patient more than 50% of the time was spent in counseling and care coordination. Objective - Vital Signs Vital signs: Vital Signs Temp 97.6 F 02/10/21 04:35 Pulse 66 02/10/21 04:35 Resp 19 02/10/21 04:35 BP 127/62 02/10/21 04:35 Pulse Ox 97 02/10/21 04:35 Intake & Output 02/09/21 02/10/21 02/10/21 18:59 06:59 18:59 Intake Total 0 0 Output Total 1000 600 Balance -1000 -600 0 Weight 50.3 kg Intake: Oral 0 0 Output: Urine 1000 600 Other: Voiding Method Indwelling Catheter Indwelling Catheter - Labs CBC & Chem 7: 02/10/21 11:15 02/10/21 11:15 Labs: Abnormal Lab Results - Last 24 Hours (Table) 02/09/21 02/09/21 02/09/21 Range/Units 08:49 08:49 14:14 WBC 11.1 H (3.8-10.6) k/uL RBC 3.64 L (4.30-5.90) m/uL Hgb 11.4 L (13.0-17.5) gm/dL Hct 37.4 L (39.0-53.0) % MCV 102.8 H (80.0-100.0) fL MCHC 30.4 L (31.0-37.0) g/dL Neutrophils # 8.4 H (1.3-7.7) k/uL Sodium 163 H* 160 H (137-145) mmol/L Potassium 3.4 L (3.5-5.1) mmol/L Chloride 135 H* (98-107) mmol/L Carbon Dioxide 21 L (22-30) mmol/L BUN 91 H (9-20) mg/dL Creatinine 1.61 H (0.66-1.25) mg/dL Glucose 112 H (74-99) mg/dL Calcium 8.1 L (8.4-10.2) mg/dL Magnesium 3.3 H (1.6-2.3) mg/dL Total Protein 4.8 L (6.3-8.2) g/dL Albumin 2.2 L (3.5-5.0) g/dL 02/09/21 02/10/21 Range/Units 17:46 01:55 WBC (3.8-10.6) k/uL RBC (4.30-5.90) m/uL Hgb (13.0-17.5) gm/dL Hct (39.0-53.0) % MCV (80.0-100.0) fL MCHC (31.0-37.0) g/dL Neutrophils # (1.3-7.7) k/uL Sodium 160 H 158 H (137-145) mmol/L Potassium (3.5-5.1) mmol/L Chloride (98-107) mmol/L Carbon Dioxide (22-30) mmol/L BUN (9-20) mg/dL Creatinine (0.66-1.25) mg/dL Glucose (74-99) mg/dL Calcium (8.4-10.2) mg/dL Magnesium (1.6-2.3) mg/dL Total Protein (6.3-8.2) g/dL Albumin (3.5-5.0) g/dL Microbiology - Last 24 Hours (Table) 02/07/21 18:25 Blood Culture - Preliminary Blood No Growth after 48 hours
--- NOTE | 2021-02-10 14:06 | P.PN ---
Subjective Progress Note Date: 02/10/21 He was seen at bedside and his condition continues to be the same as yesterday. There is no improvement. Objective - Vital Signs Vital signs: Vital Signs Temp 96.9 F L 02/10/21 08:10 Pulse 67 02/10/21 08:10 Resp 19 02/10/21 08:10 BP 146/65 02/10/21 08:10 Pulse Ox 98 02/10/21 08:10 Intake & Output 02/09/21 02/10/21 02/10/21 18:59 06:59 18:59 Intake Total 0 150 Output Total 1000 600 Balance -1000 -600 150 Weight 50.3 kg Intake: Intake, IV Titration 150 Amount Dextrose 5% in Water 1, 150 000 ml @ 150 mls/hr IV . Q6H40M [facility] Rx#:[id number] Oral 0 0 Output: Urine 1000 600 Other: Voiding Method Indwelling Catheter Indwelling Catheter Indwelling Catheter - Exam GENERAL: The patient is lying in bed and does not seem in acute distress. NEUROLOGICAL: Higher mental function: The patient is comatose. Not responding or following commands. Cranial nerves: Manually opened the eys. The pupils are round, equal and reactive to light. Pupils are 2-3mm bilaterally. Primary gaze is midline. No facial weakness. Other than that could not assess rest of the cranial nerves. Motor: The strength is unable to assess because of his lack of cooperation. Has atrophy of right upper extremity (hx of polio). Has increase tone in right elbow. Seems to have decrease tone in bilateral ankle region. Cerebellum: Could not assess. Sensation: Could not asses. Reflexes (right/left): 1+ throughout. Plantars are mute bilaterally. - Labs CBC & Chem 7: 02/10/21 11:15 02/10/21 17:34 Labs: Abnormal Lab Results - Last 24 Hours (Table) 02/09/21 02/09/21 02/09/21 Range/Units 08:49 14:14 17:46 Neutrophils # 8.4 H (1.3-7.7) k/uL Sodium 160 H 160 H (137-145) mmol/L 02/10/21 Range/Units 01:55 Neutrophils # (1.3-7.7) k/uL Sodium 158 H (137-145) mmol/L Microbiology - Last 24 Hours (Table) 02/07/21 18:25 Blood Culture - Preliminary Blood No Growth after 48 hours Assessment and Plan Assessment: Altered mental status due to metabolic encephalopathy (electrolyte abnormalities hypernatremia (163 initially-->160), hypermagnesemia, DESIRAE), hypotensive due to anemia. Hypernatremia due to lack of oral intake--trending down History of Lewy body dementia (3 years ago) Metabolic acidosis due to acute kidney injury Acute kidney insufficiency likely from poor oral intake--improving Anemia (with hemoglobin on admission of 4.2)--improved Macrocytosis due to the anemia History of Polio with atrophy of the right upper extremity Plan: Continue correcting the electrolyte imbalance and mostly hypernatremia. Nephrology is on board and we'll defer the management to the nephrology team. TSH is 0.58, vitamin B12 is 2534 which is high and consider normal and the serum folate is 7.2 and that is considered normal as well. EEG on 02/10/2021 (Preliminary report): [place] slowing is suggestive of moderate to severe encephalopathy. There are no focal slowing, epileptiform discharges or seizure on EEG. Recommend for the patient to follow-up with a neurologists within 1-2 weeks upon discharge regarding further management of Lewy body dementia. Spoke with the patient's (Kiya) on 02/09/2021 and she stated will give patient 2-3 days and if not improved will consider hospice. The plan is discussed with the patient's nurse Will follow-up with the patient sporadically. Kannan Quintero MD Neuro-Hospitalist Time with Patient: Less than 30
--- NOTE | 2021-02-10 16:10 | PN ---
PROGRESS NOTE The patient is seen for followup for hyponatremia and acute kidney injury. He is currently maintained on D5W. Serum sodium has been decreasing. It is down to 154 today. PHYSICAL EXAMINATION: Patient does not respond much to verbal stimuli. He did respond to painful stimuli. Blood pressure this morning 146/65, heart rate 67 per minute, he is afebrile. Examination of the heart S1, S2. Examination of lungs, decreased breath sounds at the bases. Abdomen is soft, nontender. Examination of lower extremities shows no evidence of edema. The patient is not moving his extremities much. His right upper extremity shows evidence of atrophy and contracture. LAB: Show sodium 154, potassium 3.7, chloride 128, BUN 61, serum creatinine 1.3, hemoglobin 11.0 g/dL. ASSESSMENT: 1. Hypernatremia associated with free water deficit, currently improving. Continue with the D5W. 2. Acute kidney injury associated with hypotension and volume depletion, slowly improving. 3. Failure to thrive. 4. Metabolic acidosis associated with renal failure, now improved. 5. Severe anemia on initial admission with hemoglobin of 4.2 status post packed RBCs transfusion. No active bleeding noted. 6. History of Parkinson disease and Lewy body dementia. PLAN: Continue D5W, repeat labs in a.m. MMODL / IJN: [id number] /
--- NOTE | 2021-02-10 17:29 | EEG ---
ELECTROENCEPHALOGRAM REPORT DATE OF SERVICE: 02/10/2021. CLINICAL HISTORY: This is an 80-year-old gentleman who presented to the hospital for altered mental status. This video EEG is obtained to evaluate for seizure, epileptiform activity. RELEVANT MEDICATION: The patient is not on any antiepileptic drugs. EEG TYPE: A routine 21 channel EEG was performed with video using the 10/20 electrode placement system. DESCRIPTION: Wakefulness and drowsiness are obtained. During wakefulness, the background consists of 6 hertz theta activity intermixed with delta activity. And at times, the background consists of diffuse nonrhythmic delta activity. He appears to be the patient is also in the drowsy state. There is no physiological stage 2 sleep seen. There is no focal slowing seen. There is occasional myogenic artifact seen during the study. Interictal and ictal: None. ACTIVATION PROCEDURE: Photic stimulation did not evoke a posterior driving response. Hyperventilation not performed. CLINICAL INTERPRETATION: This is an abnormal routine EEG. The background slowing is suggestive of moderate to severe encephalopathy. There are no focal slowing, epileptiform discharges or seizure on the EEG. Clinical correlation is recommended. MMODL / IJN: [id number] / MTDIsa
[2021-02-10] MEDS: AMMONIUM LACTATE 12% CREAM 140 GM TUBE TOPICAL SCH (20:00)
[2021-02-10] MEDS: LATANOPROST 0.005% OPHTH DROPS 2.5 ML BTL BOTH EYES SCH (20:00)
[2021-02-10] MEDS: MONTELUKAST 10 MG TAB PO SCH (23:13)
[2021-02-10] MEDS: DONEPEZIL 10 MG TAB PO SCH (23:13)
[2021-02-11] MEDS: DEXTROSE 5% IN WATER 1,000 ML IV SCH ×3 (02:25→21:07)
[2021-02-11 09:49] LABS: Calcium 7.6 mg/dL (8.4-10.2); Magnesium 2.4 mg/dL (1.6-2.3); Phosphorus 2.5 mg/dL (2.5-4.5); Potassium 3.4 mmol/L (3.5-5.1)
[2021-02-11 09:53] LABS: INR 1.5 (<1.2); Prothrombin Time 14.9 sec (9.0-12.0)
[2021-02-11] MEDS: CLOPIDOGREL 75 MG TAB PO SCH (10:00)
[2021-02-11] MEDS: EZETIMIBE 10 MG TAB PO SCH (10:00)
[2021-02-11] MEDS: AMMONIUM LACTATE 12% CREAM 140 GM TUBE TOPICAL SCH ×2 (10:05→21:17)
[2021-02-11] MEDS: HEPARIN SODIUM,PORCINE/PF 5,000 UNIT/0.5 ML SYRINGE SQ SCH ×3 (10:05→23:37)
[2021-02-11 10:09] LABS: HCT 32.5 % (39.0-53.0); HGB 10.3 gm/dL (13.0-17.5); Hypochromasia Slight; MCH 31.7 pg (25.0-35.0); MCHC 31.7 g/dL (31.0-37.0); Macrocytosis Slight; Platelet Count 146 k/uL (150-450); RBC 3.25 m/uL (4.30-5.90); RDW 14.3 % (11.5-15.5); WBC 7.9 k/uL (3.8-10.6)
--- NOTE | 2021-02-11 11:52 | PN ---
PROGRESS NOTE Patient is seen for followup for hypernatremia and acute kidney injury. He is currently maintained on D5 water. Serum sodium has improved to 144 today. Patient's mentation remains significantly impaired although it may be slightly improved from yesterday, he was moaning on painful stimuli. The patient does not respond to verbal stimuli. PHYSICAL EXAMINATION: On examination today, blood pressure 147/81, heart rate 66 per minute. He is not opening his eyes but does moan on sternal rub. Examination of the heart S1, S2. Examination of the lungs, bilateral breath sounds are heard. He has atrophy and contracture of his right upper extremity. Patient is not moving his other limbs as well at this point. Abdomen is soft, nontender. No significant edema noted in the lower extremities. LAB: Show sodium 144, potassium 3.4, chloride 120, BUN 43, creatinine 1.05, hemoglobin 10.3 g/dL. ASSESSMENT: 1. Acute kidney injury, prerenal, currently improving. 2. Hypernatremia associated with free water deficit, currently improved, decrease D5W. 3. Failure to thrive. 4. Metabolic acidosis associated with renal failure, now improved. 5. History of Parkinson disease and Lewy body dementia. 6. Mental status changes only slightly improved from yesterday. PLAN: Decrease D5W to 75 mL an hour. Repeat sodium this evening and change to half-normal saline if sodium is dropping fast. MMODL / IJN: [id number] /
[2021-02-11] MEDS ORDERED: SCOPOLAMINE 1.5MG/72HR PATCH TRANSDERM SCH (13:00)
--- NOTE | 2021-02-11 13:00 | P.PN ---
Subjective Progress Note Date: 02/11/21 (delayed charting seen at 0900) Principal diagnosis: altered mentation Patient is a 80-year-old male with a history of the body dementia, Parkinson's disease, right arm atrophy since childhood, hypertension, dyslipidemia, and prior CVA who was brought to the emergency by his for failure to thrive and mental status change. Patient was recently at snf facility in [place] where his found him to be nonverbal, lethargic, ill-appearing. He had been recovering form 2 hospitals stays for infected foot ulcer and subsequent C diff infection. When his found him with decreased responsiveness she hired a private ambulance to dry them back from [place] to [place]. On arrival to the ER he was found have a blood pressure of 69/58. Laboratory analysis showed white blood cell count of 13.9, hemoglobin 12.8, sodium 170, potassium 3.8, acute kidney injury with a creatinine of 2.91, COVID testing was negative. He was admitted and started on D5. CT brain showed no acute process. Nephrology was consulted. Sodium was monitored closely. He was seen by neurology and altered mentation likely due to electrolyte disturbances in conjunction with underlying dementia. Plan is for home in AM with [facility]. Patient seen and examined at bedside. He is not responsive but does track sounds with his eyes when they are held open. General: ill appearing, no distress, appears at stated age, temprotal and buccal fat pad loss Derm: warm, dry, quarter sized ucler right lateral malelolus covered with black eschar. Head: atraumatic, normocephalic, symmetric Eyes: EOMI, no lid lag, anicteric sclera Mouth: no lip lesion, mucus membranes dry Cardiovascular: S1S2 reg, no murmur, positive posterior tibial pulse bilateral, Lungs: Decreased bs bilateral, no rhonchi, no rales , no accessory muscle use Abdominal: soft, nontender to palpation, no guarding, no appreciable organomegaly Ext: + gross muscle atrophy, no edema, no contractures Neuro: + withdrawal to pain in upper and lower extremities Psych: eyes open to verbal stimuli, not following command, appears comfortable Toxic metabolic encephalopathy with history of underlying Lewy body dementia - supprotive care - correction of electrolytes - hold all oral meds no safe to swallow. Severe hypernatremia and acute kidney injury secondary to dehydration - continue with D5, decreased rate repeat sodium at 1500 - monitor sodium - nephro recs Coagulopathy secondary to poor nutritional status -Continue to monitor intermittently Unstagable ulcer right lateral mallelolus ulcer - magioney for enzamatic debridement - cover with occlusive dressing Hypertension -metoprolol/norvasc - on hold with hypotension on admission Dyslipidemia - all oral meds on hold Hypotension, resolved secondary to dehydration Leukocytosis, resolved due to stress Chronic: Parkinson disease, HLD poor overall prognosis DVT prophylaxis: heparin Discussed with: patient, nursing, Anticipated discharge: in AM Anticipated discharge place: hospice A total of 25 minutes was spent on the care of this complex patient more than 50% of the time was spent in counseling and care coordination. Objective - Vital Signs Vital signs: Vital Signs Temp 98.2 F 02/11/21 10:00 Pulse 66 02/11/21 10:00 Resp 18 02/11/21 10:00 BP 147/81 02/11/21 10:00 Pulse Ox 100 02/11/21 10:00 Intake & Output 02/10/21 02/11/21 02/11/21 18:59 06:59 18:59 Intake Total 150 0 Output Total 600 350 Balance -450 -350 0 Weight 50.7 kg Intake: Intake, IV Titration 150 Amount Dextrose 5% in Water 1, 150 000 ml @ 150 mls/hr IV . Q6H40M [facility] Rx#:[id number] Oral 0 0 Output: Urine 600 350 Other: Voiding Method Indwelling Catheter Indwelling Catheter Indwelling Catheter - Labs CBC & Chem 7: 02/11/21 09:01 02/11/21 09:01 Labs: Abnormal Lab Results - Last 24 Hours (Table) 02/10/21 02/10/21 02/10/21 Range/Units 11:15 11:15 17:34 RBC 3.35 L (4.30-5.90) m/uL Hgb 11.0 L (13.0-17.5) gm/dL Hct 34.3 L (39.0-53.0) % MCV 102.4 H (80.0-100.0) fL Plt Count (150-450) k/uL PT (9.0-12.0) sec INR (<1.2) Sodium 154 H 153 H (137-145) mmol/L Potassium (3.5-5.1) mmol/L Chloride 128 H (98-107) mmol/L BUN 61 H (9-20) mg/dL Creatinine 1.30 H (0.66-1.25) mg/dL Glucose 113 H (74-99) mg/dL Calcium 7.9 L (8.4-10.2) mg/dL Magnesium 2.8 H (1.6-2.3) mg/dL 02/11/21 02/11/21 02/11/21 Range/Units 09:01 09:01 09:01 RBC 3.25 L (4.30-5.90) m/uL Hgb 10.3 L (13.0-17.5) gm/dL Hct 32.5 L (39.0-53.0) % MCV (80.0-100.0) fL Plt Count 146 L (150-450) k/uL PT 14.9 H (9.0-12.0) sec INR 1.5 H (<1.2) Sodium (137-145) mmol/L Potassium 3.4 L (3.5-5.1) mmol/L Chloride 120 H (98-107) mmol/L BUN 43 H (9-20) mg/dL Creatinine (0.66-1.25) mg/dL Glucose 122 H (74-99) mg/dL Calcium 7.6 L (8.4-10.2) mg/dL Magnesium 2.4 H (1.6-2.3) mg/dL Microbiology - Last 24 Hours (Table) 02/07/21 18:25 Blood Culture - Preliminary Blood No Growth after 72 hours
[2021-02-11] MEDS: POTASSIUM CHLORIDE 10 MEQ in WATER FOR INJECTION 1 100ML.BAG IVPB SCH ×2 (13:41→16:02)
[2021-02-11] MEDS: LATANOPROST 0.005% OPHTH DROPS 2.5 ML BTL BOTH EYES SCH (21:17)
[2021-02-12] MEDS: DEXTROSE 5% IN WATER 1,000 ML IV SCH (03:05)
[2021-02-12 09:02] LABS: HCT 30.6 % (39.0-53.0); HGB 10.4 gm/dL (13.0-17.5); MCH 32.8 pg (25.0-35.0); MCHC 33.8 g/dL (31.0-37.0); Mean Platelet Volume 8.4; Platelet Count 158 k/uL (150-450); RBC 3.16 m/uL (4.30-5.90); RDW 13.9 % (11.5-15.5); WBC 9.4 k/uL (3.8-10.6)
[2021-02-12 09:20] LABS: Calcium 7.7 mg/dL (8.4-10.2); Potassium 3.4 mmol/L (3.5-5.1)
[2021-02-12] MEDS: HEPARIN SODIUM,PORCINE/PF 5,000 UNIT/0.5 ML SYRINGE SQ SCH ×3 (09:35→23:03)
[2021-02-12] MEDS: AMMONIUM LACTATE 12% CREAM 140 GM TUBE TOPICAL SCH ×2 (09:36→20:33)
[2021-02-12] MEDS: SODIUM CHLORIDE 0.45% 1,000 ML IV SCH ×2 (09:38→23:04)
[2021-02-12 10:23] VITALS: BMI 26.5
[2021-02-12] MEDS ORDERED: ATROPINE OPHTH SOLN 1% 5ML BTL SUBLINGUAL PRN (13:26)
--- NOTE | 2021-02-12 13:36 | P.PN ---
Subjective Progress Note Date: 02/12/21 Hospital course: Patient is an 80-year-old male with a past medical history of body dementia, Parkinson's, hypertension, hyperlipidemia, and previous CVA. He presented to the hospital initially with his secondary to concerns of alteration in mental status, hypotension, and failure to thrive after recent prolonged hospitalization followed by transfer and quarantine at senior care facility in [place] and was started on Remeron. It is reported that prior to transfer to senior care facility patient was alert and oriented, walking independently, and displayed no difficulties with communication. Patient's reported that during period of isolation patient rapidly declined. She states this is when she made the decision to have him transferred via ambulance back to [place]. Upon arrival to hospital pt was reported to be unresponsive and hypoxic with agonal respirations and significant hypotension with blood pressure of 64/42. Patient was found to be hypernatremic with sodium of 170, in acute renal failure with BUN of 99, creatinine 2.91, and GFR 19 resulting in admission under our services with consultation to nephrology, cardiology, and neurology. Chest x- ray was completed showing mild atelectasis at the right lung base otherwise no acute cardiopulmonary process. CT head negative for acute intracranial process. Patient was seen and evaluated by neurology and nephrology. Despite improvement in electrolyte function, patient has shown no improvement in responsiveness. Plan is for discharge home for home hospice with [facility]. Awaiting arrangements to be completed. Physical exam: Unable to complete ROS secondary to patient's unresponsive state. Sodium level slowly improving initially 170. Vital signs stable at this time. General: appears at stated age, no physical or verbal response Derm: warm, dry Head: atraumatic, normocephalic, symmetric Eyes: Pupils equal, round, and reactive to light 3 mm to 1 mm. Unable to assess EOMs as patient is not responding and unable to follow commands. Corneal reflex present. Anicteric sclera Mouth: no lip lesion, mucus membranes dry Cardiovascular: S1S2 normal with regular rate and rhythm. No murmur, gallop, or rub. Posterior tibial pulses palpated bilaterally. Cap refill less than 2 seconds. No lower extremity edema. Lungs: Respirations even, regular, and unlabored on room air. Lungs clear to auscultation bilaterally. No wheezes, rhonchi, or rales noted. No accessory muscle usage. GI/: soft, nontender to palpation, no guarding, no appreciable organomegaly. Titus catheter in place.. Ext: Right upper extremity contracture Neuro: GCS 7. Patient unresponsive to verbal and tactile stimuli. Assessment and Plan of Care: Acute metabolic encephalopathy likely secondary to severe hypovolemic hypernatremia on top of Lewie Body Dementia -Patient's condition remains unchanged, not responsive. Family plans for disc harge home on hospice, plan for discharge home on [facility] once arrangements are completed. -Supportive/comfort care. Severe hypovolemic hypernatremia, resolved -Initial sodium 170, currently 139. -D5W was discontinued, patient now on 0.9% normal saline at 75 mL's per hour -Serum sodiums every 6 hours. -Nephrology following, appreciate further recommendations Acute kidney injury likely secondary to dehydration versus hypoperfusion with initial blood pressure of 64/42, improved. -Initial BUN 99, creatinine 2.91, and GFR 19. Improving with current renal function BUN 29, creatinine 1.00, and GFR of 70. -Continued with gentle hydration with IV fluids. Hypokalemia, improving -Initial potassium 2.2, currently 3.4. -Continue to replace electrolyte abnormalities as needed and monitor closely with repeat a.m. labs. History of hypertension, hypotensive upon arrival 64/42. -Hold home medications at this time and we will continue to monitor vital signs closely. Additional chronic medical conditions include: Lewy body dementia, Parkinson's disease, atrophy of right arm since childhood, hyperlipidemia, and previous CVA. CODE STATUS: DO NOT RESUSCITATE/DO NOT INTUBATE DVT prophylaxis: Heparin Discussed with: RN Anticipated discharge date: Plan for discharge home today or tomorrow on home hospice once arrangements are completed. Anticipated discharge place: Home hospice with [facility]. A total of 35 minutes was spent on the care of this complex patient more than 50% of the time was spent in counseling and care coordination. Objective - Vital Signs Vital signs: Vital Signs Temp 98.2 F 02/12/21 08:00 Pulse 71 02/12/21 08:00 Resp 18 02/12/21 03:34 BP 129/70 02/12/21 08:00 Pulse Ox 100 02/12/21 08:00 Intake & Output 02/11/21 02/12/21 02/12/21 18:59 06:59 18:59 Intake Total 0 0 0 Output Total 625 1000 550 Balance -140 1000 -057 Weight 68 kg 68 kg Intake: Oral 0 0 0 Output: Urine 006 1000 550 Other: Voiding Method Indwelling Catheter Indwelling Catheter - Labs CBC & Chem 7: 02/12/21 07:57 02/12/21 07:57 Labs: Abnormal Lab Results - Last 24 Hours (Table) 02/12/21 02/12/21 Range/Units 07:57 07:57 RBC 3.16 L (4.30-5.90) m/uL Hgb 10.4 L (13.0-17.5) gm/dL Hct 30.6 L (39.0-53.0) % Potassium 3.4 L (3.5-5.1) mmol/L Chloride 115 H (98-107) mmol/L BUN 29 H (9-20) mg/dL Glucose 114 H (74-99) mg/dL Calcium 7.7 L (8.4-10.2) mg/dL Microbiology - Last 24 Hours (Table) 02/07/21 18:25 Blood Culture - Preliminary Blood No Growth after 96 hours
[2021-02-12] MEDS ORDERED: POTASSIUM CHLORIDE 20 MEQ in WATER FOR INJECTION 1 100ML.BAG IVPB STA (15:06)
--- NOTE | 2021-02-12 16:23 | PN ---
PROGRESS NOTE Patient is seen for followup for hypernatremia and acute kidney injury. Renal function continues to improve. The patient's sodium was down to 139 today. This morning he did respond a little bit more to verbal stimuli and painful stimuli. Otherwise other than that, patient is not able to carry on a conversation and does not follow commands. PHYSICAL EXAMINATION: Blood pressure was 129/70, heart rate 71 per minute. He is afebrile. EXAMINATION OF THE HEART: S1, S2. EXAMINATION OF THE LUNGS: Bilateral breath sounds are heard. Abdomen is soft, nontender. Examination of lower extremities shows no evidence of edema. Patient has an atrophic right upper extremity. He does not move his limbs much. LABS: Labs show sodium 139, potassium 3.4, chloride 115, BUN 29, creatinine 1.0. ASSESSMENT: 1. Acute kidney injury prerenal currently improving. 2. Hypernatremia, improved. The patient has been maintained on D5W. I will change to half-normal saline. 3. Hypokalemia. We will replace with IV medications as I do not believe patient can take p.o. 4. Mental status changes with underlying Lewy body dementia. Etiology was electrolyte imbalance, currently only slightly improved. 5. Metabolic acidosis associated with renal failure, currently improved. PLAN: Change IV fluids to half-normal saline and repeat labs in a.m. MMODL / IJN: [id number] /
[2021-02-12] MEDS: LATANOPROST 0.005% OPHTH DROPS 2.5 ML BTL BOTH EYES SCH (20:33)
[2021-02-12 23:44] VITALS: RESP 20; TEMP 98.9
[2021-02-13 04:21] VITALS: BP 100/65
[2021-02-13] MEDS: HEPARIN SODIUM,PORCINE/PF 5,000 UNIT/0.5 ML SYRINGE SQ SCH (09:20)
[2021-02-13] MEDS: AMMONIUM LACTATE 12% CREAM 140 GM TUBE TOPICAL SCH (09:21)
--- NOTE | 2021-02-13 09:44 | P.DS ---
Providers Date of admission: 02/07/21 20:14 Expected date of discharge: 02/13/21 Attending physician: Jose De Jesus Florez MD Consults: 02/07/21 20:14 Consult Physician Routine Consulting Provider: Elroy Bustillo Consult Reason/Comments: Failure to thrive, acute renal failure Do you want consulting provider notified?: Yes 02/08/21 03:26 Consult Physician Urgent Consulting Provider: Rafael Larsen Consult Reason/Comments: Hypernatremia, DESIREA Do you want consulting provider notified?: Yes 02/09/21 13:26 Consult Physician Routine Consulting Provider: Kannan Quintero Consult Reason/Comments: unresponsive hx Lewie body dementia &Parkinson's. hypernatremia with Na+163 Do you want consulting provider notified?: Yes Primary care physician: Elroy Bustillo Hospital Course: Discharge Diagnosis: Acute metabolic encephalopathy likely secondary to severe hypovolemic hypernatremia on top of Lewie Body Dementia Severe hypovolemic hypernatremia, resolved Acute kidney injury likely secondary to dehydration versus hypoperfusion with initial blood pressure of 64/42, improved. Hypokalemia, improving History of hypertension, hypotensive upon arrival 64/42. Lewy body dementia Parkinson's disease Atrophy of right arm since childhood Hyperlipidemia Previous CVA. Hospital Course: Patient is an 80-year-old male with a past medical history of Lewie body dementia, Parkinson's, hypertension, hyperlipidemia, and previous CVA. He presented to the hospital initially with his secondary to concerns of alteration in mental status, hypotension, and failure to thrive after recent prolonged hospitalization followed by transfer and quarantine at detention facility in [place]. It was reported that prior to transfer to detention facility patient was alert and oriented, walking independently, and displayed no difficulties with communication. Patient's reported that during period of isolation patient rapidly declined and once able to see him she found him in an non-responsive state. She states this is when she made the decision to have him transferred via private ambulance back to [place]. Upon arrival to hospital pt was reported to be unresponsive and hypoxic with agonal respirations and significant hypotension with blood pressure of 64/42. Patient was found to be hypernatremic with sodium of 170, in acute renal failure with BUN of 99, creatinine 2.91, and GFR 19 resulting in admission under our services with consultation to nephrology, cardiology, and neurology. Chest x-ray was completed showing mild atelectasis at the right lung base otherwise no acute cardiopulmonary process. CT head negative for acute intracranial process. Patient was seen and evaluated by neurology and nephrology and started on a D5W infusion for hypernatremia. Despite improvement in renal and electrolyte function with sodium returning to baseline levels, patient has shown no improvement in mentation and overall responsiveness. Pt's has made the decision to bring him home under hospice care. Pt being discharged home with home healthcare services under [facility] for end of life care. Physical exam: Patient seen and fully evaluated at the bedside this morning. He remains non- responsive to verbal or tactile stimuli. Vital signs are stable. He is being discharged home with his family under hospice services. General: appears at stated age, no physical or verbal response Derm: warm, dry Head: atraumatic, normocephalic, symmetric Eyes: Pupils equal, round, and reactive to light 2 mm to 1 mm. Unable to assess EOMs as patient is not responding and unable to follow commands. Anicteric sclera Mouth: no lip lesion, mucus membranes dry Cardiovascular: S1S2 normal with regular rate and rhythm. No murmur, gallop, or rub. Posterior tibial pulses palpated bilaterally. Cap refill less than 2 seconds. No lower extremity edema. Lungs: Respirations even, regular, and unlabored on room air. Lungs clear to auscultation bilaterally. No wheezes, rhonchi, or rales noted. No accessory muscle usage. GI/: soft, nontender to palpation, no guarding, no appreciable organomegaly. Titus catheter in place.. Ext: Right upper extremity contracture Neuro: GCS 7. Patient unresponsive to verbal and tactile stimuli. A total of 45 minutes of time were spent preparing this complex discharge summary. Patient Condition at Discharge: Serious Plan - Discharge Summary Discharge Rx Participant: No New Discharge Prescriptions: New Atropine Ophth Soln 1% 5Ml [Isopto Atropine 1% 5Ml] 2 drops SUBLINGUAL Q4HR PRN #1 bottle PRN Reason: Excess Secretions Scopolamine 1.5MG/72Hr Patch [TransDerm Scop] 1 patch TRANSDERM Q72H #1 box Discontinued Bimatoprost [Lumigan .01% Ophth Soln] 1 drop BOTH EYES HS Montelukast [Singulair] 10 mg PO HS Ezetimibe [Zetia] 10 mg PO DAILY Metoprolol Succinate (ER) [Toprol XL] 50 mg PO DAILY Clopidogrel [Plavix] 75 mg PO DAILY Losartan Potassium 50 mg PO BID amLODIPine [Norvasc] 5 mg PO DAILY Donepezil HCl [Aricept] 10 mg PO HS Mirtazapine 7.5 mg PO HS Discharge Medication List Atropine Ophth Soln 1% 5Ml [Isopto Atropine 1% 5Ml] 2 drops SUBLINGUAL Q4HR PRN #1 bottle 02/13/21 [Rx] Scopolamine 1.5MG/72Hr Patch [TransDerm Scop] 1 patch TRANSDERM Q72H #1 box 02/13/21 [Rx] Follow up Appointment(s)/Referral(s): Elroy Bustillo MD [Primary Care Provider] - 1-2 days [facility] Visiting Nurse, [NON-STAFF] - Activity/Diet/Wound Care/Special Instructions: Activity: Bedrest Special Instructions: We are discharging Mr. Higgins home to be with his family with home healthcare services under [facility]. Thank you for allowing us to participate in his care. Discharge Disposition: HOME WITH HOSPICE
[2021-02-13 10:50] VITALS: PULSE 89
--- NOTE | 2021-02-21 13:18 | CDI ---
Documentation Clarification Form Date: 02/21/2021 12:50:00 PM From: Whitley Collins Phone: If you have a question about this query, please contact [employer], Java Developer Consultant at [phone] between 8am and 5pm. Admit Date: 02/07/2021 08:14:00 PM Patient Name: Fortunato Higgins Visit Number: [id number] Discharge Date: 02/13/2021 10:30:00 AM ATTENTION: The Clinical Documentation Specialists (CDI) and [facility] Coding Staff appreciate your assistance in clarifying documentation. Please respond to the clarification below the line at the bottom and electronically sign. The CDI & [facility] Coding staff will review the response and follow-up if needed. Please note: Queries are made part of the Legal Health Record. If you have any questions, please contact the author of this message via ITS. Dr. Jose De Jesus Florez There is documentation in H and P that patient had developed a ankle ulcer. Per pulmonary consult patient has wounds to bilateral ankles and coccyx. Additional specificity regarding the [etiology, severity] of the wound is requested. Per nursing wound care notes patient has a stage III pressure ulcer to right ankle and stage II pressure ulcer to left ankle. Pressure wound buttock is stage II. Please clarify if patient had pressure ulcers to bilateral ankles and coccyx (buttock) or were these non pressure ulcers. Patient history/risk factors: Patient in quarantine in [place] [facility]. Patient is non verbal and has lewy body dementia. Failure to thrive. Clinical Indicators: Wound assessment: Per nursing notes pressure ulcer stage III right ankle stage II left ankle and stage II buttock. Treatment:Ammonium lactate cream Consult: Pulmonary documents bilateral ankle and coccyx wounds Please clarify if ankle ulcers and coccyx (buttock) wound are pressure or non- pressure ulcers. Non pressure ulcers Pressure ulcers [ ] Other, Please specify [ ] Unable to determine MTDD
== END 2021-02-13 10:30 | disposition hospice, home (50) | DRG 640 ==
LOC: EC 17:56 → 5NMEDONC 20:14 → 3SCARD 22:36
PROVIDERS: ADMIT Internal Medicine; ATTEND Internal Medicine
DX: E87.0 Hyperosmolality and hypernatremia (principal); G92 Toxic encephalopathy; N17.0 Acute kidney failure with tubular necrosis; D68.9 Coagulation defect, unspecified; F05 Delirium due to known physiological condition; J98.11 Atelectasis; L97.329 Non-pressure chronic ulcer of left ankle with unspecified severity; L97.319 Non-pressure chronic ulcer of right ankle with unspecified severity; D64.9 Anemia, unspecified; D75.89 Other specified diseases of blood and blood-forming organs; E78.5 Hyperlipidemia, unspecified; E83.41 Hypermagnesemia; Z20.822 Contact with and (suspected) exposure to COVID-19; Z51.5 Encounter for palliative care; L98.429 Non-pressure chronic ulcer of back with unspecified severity; Z66 Do not resuscitate; E86.0 Dehydration; E86.1 Hypovolemia; Z86.19 Personal history of other infectious and parasitic diseases; E87.2 Acidosis; E87.6 Hypokalemia; I95.9 Hypotension, unspecified; F02.80 Dementia in other diseases classified elsewhere, unspecified severity, without behavioral disturbance, psychotic disturbance, mood disturbance, and anxiety; G31.83 Neurocognitive disorder with Lewy bodies; I10 Essential (primary) hypertension; R09.02 Hypoxemia; R62.7 Adult failure to thrive; Z79.02 Long term (current) use of antithrombotics/antiplatelets; Z79.899 Other long term (current) drug therapy; Z86.12 Personal history of poliomyelitis; Z86.73 Personal history of transient ischemic attack (TIA), and cerebral infarction without residual deficits; Z80.0 Family history of malignant neoplasm of digestive organs; Z80.8 Family history of malignant neoplasm of other organs or systems; Z88.8 Allergy status to other drugs, medicaments and biological substances
CPT/HCPCS: 36415; 70450; 71045; 80048; 80051; 80053; 81001; 82570; 82607; 82746; 83605; 83735; 84100; 84295; 84300; 84443; 84484; 85025; 85027; 85610; 85730; 87040; 87635; 93005; 95816; 99285